=== PATIENT | male | born 1980 ===

== ENCOUNTER 2020-12-11 04:33 | Emergency (ER) | payer OTHER, SELFPAY ==
[2020-12-11 04:42] VITALS: BP 134/72; PULSE 80; RESP 16; TEMP 36.8; O2SAT 97; BMI 31.1
[2020-12-11 05:06] LABS: Glucose, Whole Blood 110 mg/dL (60-115)
--- NOTE | 2020-12-11 05:08 | PC.NURSE ---
Pt found ambulating from the waiting room into room 7. Pt CAOx4, speaking full sentences. Pt explains he has diet controlled diabetes, denies taking insulin/meds. Pt states he does not have a glucometer at home and no way to check his blood sugar. Pt recently concerned as he returned to the gym and has been eating a very high protein diet. Pt also reporting constipation, states his LBM was 3 days ago. Pt denies taking any OTC stool softeners. Pt requesting his A1C to be evaluated, states he has an appt with his PCP but not for 2 weeks. Pt requesting STI testing, states his girlfriend was cheating on him and there are rumors she has Chlamydia. Pt denies any urinary symptoms including discomfort and/or discharge. POC 110 mg/dl. Urine obtained and sent. Pt resting in bed, awaiting primary MD aster.
--- NOTE | 2020-12-11 05:20 | ED.GENADULT ---
HPI - General Adult General Chief complaint: General Medical Stated complaint: ?STD Time Seen by Provider: 12/11/20 05:09 Source: patient Mode of arrival: ambulatory Limitations: no limitations History of Present Illness HPI narrative: 40-year-old male who presents emergency department for evaluation STD exposure and he also wants his glucose checked since he has diet controlled diabetes. Patient states that 2-3 weeks ago he did have unprotected sex with a woman and he has heard that this woman is positive for chlamydia. He states he has not had any symptoms. He denies frequency, urgency or dysuria. He denies penile discharge. He has not noticed any lesions in his genital area. The patient states that he has diet-controlled diabetes. He is concerned that his glucose may be high therefore he wants his glucose checked. He denies symptoms such as change in his vision, increased thirst, urinary frequency. Related Data Previous Rx's Medication Instructions Recorded doxycycline hyclate 100 mg PO Q12H 7 Days #14 tab 12/11/20 Allergies Allergy/AdvReac Type Severity Reaction Status Date / Time acetaminophen [Tylenol] Allergy Unknown Verified 01/30/20 00:00 No Known Allergies Allergy Unverified 06/26/20 16:51 Review of Systems Review of Systems: Yes all other systems are reviewed and are negative Neurologic: Reports Abnormal speech present [facility] Past Medical History FOR[facility], [facility]1983 Narrative: Past medical history significant for diet-controlled diabetes. He does smoke cigarettes, smokes 1 pack a day. He drinks alcohol occasionally, he denies drug use. Medical History Diabetes 1.5, managed as type 2 Social History Social History Advance Directives: No Advance Directives Information Provided: No Physical Exam Vital Signs: Vital Signs: Last Vital Signs Temp 98.2 F 12/11/20 04:42 Pulse 80 12/11/20 04:42 Resp 16 12/11/20 04:42 BP 134/72 12/11/20 04:42 Pulse Ox 97 12/11/20 04:42 Body Mass Index 31.1 Const: General: cooperative and healthy appearing Orientation/consciousness: oriented to person and oriented to place Limitations: no limitations HENMT: Head: Yes normal to inspection, Yes normocephalic and Yes atraumatic Ears: external ears normal General nose exam: Normal external nose present Face and sinus: Yes normal facial exam Mouth: Normal oral and palatal mucosa present Throat: Yes posterior oropharynx normal Eyes: Periorbital: periorbital findings normal Eyelids: Yes eyelids normal Conjunctivae: conjunctivae normal Sclerae: sclerae normal Corneas: corneas normal Pupils: Equal, round and reactive pupils present Direct Ophthalmoscopy: normal light reflex Neck: Neck: Yes full ROM, Yes no lymphadenopathy, Yes no meningeal signs, Yes trachea midline and Yes supple Chest: Chest palpation & inspection: normal inspection of the chest and normal palpation of entire chest wall Resp: Effort & Inspection: normal respiratory effort and able to speak in complete sentences Auscultation: clear to auscultation bilaterally Cardio: Rate: regular rate Rhythm: regular rhythm Heart sounds: S1 normal heart sound present, S2 normal heart sound present and no murmurs GI: Inspection: Yes normal to inspection Palpation (GI): Soft to palpation, nontender, no guarding, not rigid and No hepatosplenomegaly present : General: Yes no CVA tenderness Penis: normal penis and circumcised Meatus: meatus normal and no meatla discharge Scrotum: scrotum normal Testes: Testes normal Back/Spine/Pelvis: Back: no CVA tenderness Cervical Spine: normal cervical lordosis Thoracic/Lumbar Spine: thoracic and lumbar spine normal to inspection Skin: Lesions: no lesions Rashes: no rashes Wounds: no wounds Neuro: General: oriented to person, oriented to place and no meningeal signs Cranial nerves: Yes Equal, round and reactive pupils present Cognition (Neuro): normal cognition Speech: Abnormal speech present Motor exam (neuro): 5/5 motor strength present throughout Extrem: General: Yes normal to inspection and Yes full ROM Psych: Appearance: well kempt Mental Status: mental status grossly normal Speech and movement: Normal speech and movement present Affect: normal affect Attitude: cooperative Thought process: Normal thought process present Thought content: Normal thought content present Course Course Course Narrative: 40-year-old male who has a history of diet-controlled diabetes mellitus who requested a glucose check. Patient's point of care glucose was 110 which I told him was reassuring, told him he should talk to his doctor about getting a glucose monitor so he can check his glucose at home and follow his diabetes. The patient was also concerned that he had exposure to chlamydia. I did send a urine for gonorrhea and chlamydia testing. The patient will be treated empirically with ceftriaxone 500 mg IM (with lidocaine) for gonorrhea and doxycycline 100 mg twice a day for 7 days for chlamydia. Medical Decision Making Lab Data Labs: Lab Results 12/11/20 Range/Units 04:57 POC Glucose 110 (60-115) mg/dL Discharge Plan Discharge Clinical Impression: Acute hyperglycemia, Exposure to sexually transmitted disease (STD) Patient Disposition: Home, Self-Care Instructions: Sexually Transmitted Diseases (ED) Additional Instructions: Your point of care glucose was 110. Normal range is between 60 and 100. We like to keep your glucose less than 150. You were treated with ceftriaxone 500 mg IM, this will treat gonorrhea. I sent a prescription for doxycycline 100 mg twice a day for 7 days, this will treat chlamydia. If you wanted be tested for syphilis or HIV disease, used to follow up with [facility]. Follow-up with your doctor in 2 days. Please return to the emergency department if your symptoms get worse or if you develop any symptoms that are concerning to you. Prescriptions: New doxycycline hyclate 100 mg tablet 100 mg PO Q12H 7 Days Qty: 14 RF: 0
[2020-12-11] MEDS: cefTRIAXone sodium 500 MG, Lidocaine HCl 1 % MPF 1 ML IM (05:34)
[2020-12-12 12:42] LABS: C. trachomatis RNA TMA NOT DETECTED (NOT DETECTED); N. gonorrhoeae RNA TMA NOT DETECTED (NOT DETECTED)
== END 2020-12-11 05:35 | disposition home or self-care (01) ==
PROVIDERS: Emergency Provider Emergency Medicine Emergency Medical Services; PCP Internal Medicine
DX: E13.65 Other specified diabetes mellitus with hyperglycemia (principal); Z20.2 Contact with and (suspected) exposure to infections with a predominantly sexual mode of transmission; Z79.899 Other long term (current) drug therapy
CPT/HCPCS: 36415; 82947; 87491; 87591; 96372; 96374; 99283; J0696

== ENCOUNTER 2021-11-17 10:26 | Outpatient (REF) | payer OTHER, SELFPAY ==
[2021-11-17 12:26] LABS: Alanine Aminotransferase 21 U/L (0-40); Albumin Level 4.2 g/dL (3.5-5.0); Alkaline Phosphatase 91 U/L (39-117); Anion Gap 13 (12-20); Aspartate Amino Transferase 13 U/L (5-37); Bilirubin Total 0.4 mg/dL (0.0-1.0); Blood Urea Nitrogen 11 mg/dL (9-16); Calcium 9.5 mg/dL (8.4-10.2); Carbon Dioxide 27 mmol/L (22-29); Chloride 104 mmol/L (96-108); Cholesterol 240 mg/dL; Estimated Glomerular Filt Rate > 60; Glucose Fasting 116 mg/dL (60-99); HDL Cholesterol 35 mg/dL; LDL Cholesterol Calculated 169 mg/dl; Potassium 4.5 mmol/L (3.3-5.1); Sodium 139 mmol/L (135-145); Total Protein 7.3 g/dL (6.5-8.0); Triglycerides 181 mg/dL
[2021-11-17 14:27] LABS: Creatinine Urine 255.14 mg/dL; Microalbum/Creatinine Ratio Ur 7.8 ug/mg cr
== END 2021-11-17 10:27 | disposition home or self-care (01) ==
LOC: HO.HMGCLDS 10:26
PROVIDERS: PCP Internal Medicine; Visit Provider Internal Medicine
DX: E11.9 Type 2 diabetes mellitus without complications (principal)
CPT/HCPCS: 36415; 80053; 80061; 82043

== ENCOUNTER 2022-12-01 13:49 | Outpatient (REF) | payer OTHER, SELFPAY ==
[2022-12-01 17:08] LABS: MANUAL DIFF FLAG NO
[2022-12-01 17:29] LABS: Basophils Percent Auto 0.4 % (0-2); Eosinophils Absolute Auto 0.1 X10*3/uL (0.0-0.4); Hematocrit 42.1 % (42.0-52.0); Hemoglobin 14.2 g/dl (14.0-18.0); Imm Gran Abs Auto 0.08 X10*3/uL (0.00-0.03); Imm Gran Pct Auto 0.7 % (0.0-0.4); Lymphocytes Absolute Auto 4.5 X10*3/uL (1.2-4.9); Lymphocytes Percent Auto 41.3 % (20-40); Mean Corpuscular HGB Conc 33.7 g/dl (31.0-36.0); Mean Corpuscular Hemoglobin 30.5 pg (27.0-33.0); Mean Corpuscular Volume 90.5 fL (80.0-98.0); Mean Platelet Volume 12.3 fL (9.4-12.4); Monocytes Absolute Auto 0.8 X10*3/uL (0.1-1.2); Neutrophils Absolute Auto 5.4 x10*3/uL (2.0-8.3); Neutrophils Percent Auto 49.6 % (45-73); Platelet Count 260 X10*3/uL (160-400); Red Blood Count 4.65 X10*6/uL (4.60-5.80); Red Cell Distribution Width 14.6 % (11.0-16.0); White Blood Count 10.9 X10*3/uL (4.8-10.8)
[2022-12-01 17:32] LABS: Estimated Average Glucose 134 mg/dL; Hemoglobin A1c % 6.3 %
[2022-12-01 18:22] LABS: Alanine Aminotransferase 35 U/L (0-40); Albumin Level 4.3 g/dL (3.5-5.0); Alkaline Phosphatase 96 U/L (39-117); Anion Gap 12 (12-20); Aspartate Amino Transferase 23 U/L (5-37); Bilirubin Total 0.4 mg/dL (0.0-1.0); Blood Urea Nitrogen 9 mg/dL (9-16); Calcium 9.5 mg/dL (8.4-10.2); Carbon Dioxide 25 mmol/L (22-29); Chloride 106 mmol/L (96-108); Cholesterol 237 mg/dL; Estimated Glomerular Filt Rate > 60; Glucose Fasting 98 mg/dL (60-99); HDL Cholesterol 34 mg/dL; LDL Cholesterol Calculated 165 mg/dl; Potassium 4.4 mmol/L (3.3-5.1); Sodium 139 mmol/L (135-145); Total Protein 7.1 g/dL (6.5-8.0); Triglycerides 190 mg/dL
== END 2022-12-01 13:50 | disposition home or self-care (01) ==
LOC: HO.HMGCLDS 13:49
PROVIDERS: PCP Internal Medicine; Visit Provider Internal Medicine
DX: Z00.01 Encounter for general adult medical examination with abnormal findings (principal); E11.9 Type 2 diabetes mellitus without complications; E78.9 Disorder of lipoprotein metabolism, unspecified
CPT/HCPCS: 36415; 80053; 80061; 83036; 85025

== ENCOUNTER → 2023-08-23 11:31 | Outpatient (BNVA) | payer OTHER, SELFPAY | PROVIDERS: PCP Internal Medicine; Visit Provider Physician Assistant Medical | DX: S93.402A Sprain of unspecified ligament of left ankle, initial encounter (principal); W22.09XA Striking against other stationary object, initial encounter | CPT/HCPCS: 99203 ==

== ENCOUNTER → 2023-08-29 15:12 | Outpatient (BNVA) | payer OTHER, SELFPAY | PROVIDERS: PCP Internal Medicine; Visit Provider Physician Assistant Medical | DX: S93.402A Sprain of unspecified ligament of left ankle, initial encounter (principal); W22.09XA Striking against other stationary object, initial encounter | CPT/HCPCS: 99213 ==

== ENCOUNTER 2023-09-12 11:33 | Outpatient (AMB) | payer OTHER, SELFPAY ==
--- NOTE | 2023-09-12 11:48 | MHC.OFFVIS ---
Intake Vital Signs 09/12/23 11:50 Height 6 ft Weight 253 lb BMI 34.3 Intake Visit Reasons: [employer] Left ankle sprain Intake Note: Jackson 43 yr old male presents today for a new patient visit for his left ankle W/C injury from about 2 weeks. Patient doesn't recall DOI. States he was gettikng off his truck, his boot was caught in between a tread a step causing him to twist his ankle and fell. Seen with Work connection where he was given a air cast and 2 days of rest. Currently states he has discomfort and feels like its getting better. Denies numbness or tingling in toes. Hx of DM type 2. Patient works for [employer]. Allergies acetaminophen [From Tylenol-Codeine] Adverse Reaction (Mild, Verified 09/12/23 11:50) hives codeine [From Tylenol-Codeine] Adverse Reaction (Mild, Verified 09/12/23 11:50) hives HPI [employer] Left ankle sprain HPI Details 43-year-old male who presents in the office today, as a new patient, for an evaluation of left ankle pain. The patient reports while at work he was getting off his truck when his boot caught in between the treat and a step causing him to twist his left ankle and fall. He confirms being seen at work connection where he was given an aircast and told to rest for 2 days. While in the office today he reports some discomfort and feels like it is getting better. He denies numbness or tingling in the toes. Patient works for [employer]. This a work related injury, which occurred about 2 weeks ago. The patient does not recall the exact date of injury. The patient confirms a significant medical history of diabetes mellitus. 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 Mild ecchymosis along the lateral malleolus. No erythema or edema. Patient is able to demonstrate dorsiflexion, plantar flexion, pronation and supination. Negative anterior drawer. Sensation intact. Pedal Pulse intact. Assessment & Plan Assessment & Plan (1) Left ankle sprain: Code(s): S93.402A - Sprain of unspecified ligament of left ankle, initial encounter Qualifiers: Encounter type: initial encounter Involved ligament of ankle: unspecified ligament Qualified Code(s): S93.402A - Sprain of unspecified ligament of left ankle, initial encounter Plan Mr. Puckett is a 43-year-old male who presents in the office today, as a new patient, for an evaluation of left ankle pain. The patient reports while at work he was getting off his truck when his boot caught in between the treat and a step causing him to twist his left ankle and fall. He confirms being seen at work connection where he was given an aircast and told to rest for 2 days. While in the office today he reports some discomfort and feels like it is getting better. He denies numbness or tingling in the toes. Patient works for [employer]. This a work related injury, which occurred about 2 weeks ago. The patient does not recall the exact date of injury. The patient confirms a significant medical history of diabetes mellitus. The patient was given a lace up ankle brace, off the shelf, while in the office today. He will attend 1-2 physical therapy sessions to learn an at home exercise program. 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 Follow up will be PRN, or sooner if needed. Orders: Orders PT Evaluation and Treatment Today S93.402A - Sprain of unspecified ligament of left ankle, initial encounter Patient Instructions: Scribed for iHna Segura PA-C by humphrey Guillermo scribe, on 09/12/2023 at 11:42 am, EST. Coding Level of Care Code New Pt Level 4 (15093) Diagnoses Sprain of left ankle, unspecified ligament, initial encounter S93.402A Encounter type: initial encounter Involved ligament of ankle: unspecified ligament
[2023-09-12 11:50] VITALS: BMI 34.3
== END 2023-09-12 12:31 | disposition home or self-care (01) ==
PROVIDERS: PCP Internal Medicine; Visit Provider Physician Assistant
DX: S93.402A Sprain of unspecified ligament of left ankle, initial encounter (principal)
CPT/HCPCS: 99203

== ENCOUNTER → 2023-09-12 11:33 | Outpatient (BNVA) | payer OTHER, SELFPAY | PROVIDERS: PCP Internal Medicine; Visit Provider Physician Assistant | DX: S93.402A Sprain of unspecified ligament of left ankle, initial encounter (principal) | CPT/HCPCS: 99202 ==

== ENCOUNTER 2023-10-06 15:00 | Outpatient (RCR) | payer OTHER, SELFPAY ==
--- NOTE | 2023-09-29 16:46 | MHC.PT.EP ---
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 Pt is deemed an appropriate candidate to receive skilled PT services to address their physical impairments in order to improve their functional ability. Frequency and Duration: The patient will be seen 1 x 2wks. Short Term Goals: Initiate home program. Usp Goals: I with home program with evidence of compliance. Pt will report < 2/10 stiffness discomfort; initial: 3/10. Treatment Plan: Modalities to reduce pain, spasms and effusion. Manual therapy to restore motion and function. Therapeutic exercise to improve strength and flexibility. Neuromuscular re-education for posture and balance. Therapeutic activities to return to functional activities of daily living. Electronically signed by: Armando Garibay PT. Please sign and return to therapist. Thank you for your referral.
--- NOTE | 2023-10-06 17:02 | MHC.PT.DC ---
[facility] [place] Office [place] Office [place] Office [address] [phone] F: [phone] F: [phone] F: [phone] F: [phone] Physical Therapy Discharge Report Diagnosis: Sprain of unspecified ligament of left ankle, initial encounter Date of Surgery: Date of Evaluation: 09/29/23 Date of Discharge: 10/06/23 Treatments to Date: 1 Cancellations to Date: 1 No Shows to Date: Discharge Status: Achieved Goals Independent with HEP Discharge Summary: Pt reported his initial HEP exercises feel good and cancelled his follow up visit. Electronically signed by: Armando Garibay PT. Please sign and return to therapist. Thank you for your referral.
== END 2023-10-06 17:01 | disposition home or self-care (01) ==
LOC: HO.PT 15:00
PROVIDERS: PCP Internal Medicine; Visit Provider Physician Assistant
DX: S93.402A Sprain of unspecified ligament of left ankle, initial encounter (principal)
CPT/HCPCS: 97110; 97112; 97161

== ENCOUNTER 2024-06-13 09:08 | Outpatient (AMB) | payer OTHER, SELFPAY ==
--- NOTE | 2024-06-13 09:09 | A.OFFPC_ITS ---
Vital Signs 06/13/24 09:10 Height 6 ft Weight 266 lb 2 oz BMI 36.1 BP 124/74 Blood Pressure Location Rt brachial Position Sitting Pulse 78 Pulse Source Pulse Oximeter Pulse Oximetry (%) 97 Oxygen Delivery Method Room Air Intake Visit Reasons: urgent care f/u Allergies acetaminophen [From Tylenol-Codeine] Adverse Reaction (Mild, Verified 06/13/24 09:13) hives codeine [From Tylenol-Codeine] Adverse Reaction (Mild, Verified 06/13/24 09:13) hives Medication List - Last Reconciled 06/13/24 by Rose Kinney MD No Known Home Meds Tobacco use date assessed: 06/13/24 Dental Screening Dental Screen Date: 06/13/24 Did you have a dental visit in the last 12 months?: Yes Did you have a dental problem in the last 6 months where you did not have access to dental care?: No Was dental information given to patient?: Patient has dentist HPI urgent care f/u HPI Details Patient is a 43-year-old gentlemen was diagnosed with diabetes, and was controlled on diet he stopped smoking started eating gained some weight his sugar got out of control 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 We will set up a telemedicine visit in 2 weeks to follow-up on that. 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 1. Little interest or pleasure in doing things: not at all 2. Feeling down, depressed, or hopeless: not at all 3. Trouble falling or staying asleep, or sleeping too much: not at all 4. Feeling tired or having little energy: not at all 5. Poor appetite or overeating: not at all 6. Feeling bad about yourself - or that you are a failure or have let yourself or your family down: not at all 7. Trouble concentrating on things, such as reading the newspaper or watching television: not at all 8. Moving or speaking so slowly that other people could have noticed. Or the opposite - being so fidgety or restless that you have been moving around a lot more than usual: not at all 9. Thoughts that you would be better off or of hurting yourself in some way: not at all Total score: 0 Depression Screening Interpretation: Negative Depression Screening Done: Yes 15853 - PHQ-9 Billing: Yes Source: Developed by Drs. Johnny Raymundo, Sharifa Ballesteros, Vijay Abarca and colleagues, with an educational vipin from [employer]. Thrive Questionnaire Date Thrive assessed: 06/13/24 I am a: Patient What is your living situation today?: I have a steady place to live Within the past 12 months, did the food you bought not last and you didn't have the money to get more?: Never true Within the past 12 months, did you worry whether your food would run out before you got money to buy more?: Never true Do you have trouble paying for medicines?: No Do you have trouble getting transportation to medical appointments?: No Do you have trouble paying your heating and electricity bill?: No Do you have trouble taking care of your child, family member or friend?: No Do you have trouble with day-to-day activities such as bathing, preparing meals, shopping, managing finances, etc.?: No Are you currently unemployed and looking for a job?: Yes Are you interested in more education?: No Please select the resources that you would like help with: None Currently or been in a relationship where the following occur: No concerns reported THRIVE Score: 0 AUDIT C Alcohol Use Questionnaire (AUDIT-C) 1. How often do you have a drink containing alcohol?: Monthly or less 2. How many drinks containing alcohol do you have on a typical day when you are drinking?: 1 or 2 3. How often do you have six or more drinks on one occasion?: Never Total Score: 1 Score Reviewed/Action Taken: Yes GERALD-7 AMB Questionnaire GERALD-7 Date GERALD - 7 assessed: 06/13/24 Feeling nervous, anxious, or on edge: 0 = Not at all Not being able to stop or control worryin = Not at all Worrying too much about different things: 0 = Not at all Trouble relaxin = Not at all Being so restless that it is hard to sit still: 0 = Not at all Becoming easily annoyed or irritable: 0 = Not at all Feeling afraid as if something awful might happen: 0 = Not at all Total GERALD-7 score (0-4 normal; 5-9 mild; 10-14 moderate; 15-21 severe): 0 Source: Developed by Drs. Johnny Raymundo, Sharifa Ballesteros, Vijay Abarca and colleagues, with an educational vipin from [employer]. GERALD-7 Assessment Billing GERALD-7 Assessment Tool: GERALD-7 Assessment 42057 Review of Systems Const Denies chills and Denies fever(s) ENT Denies epistaxis and Denies nasal discharge Card Denies chest pain Resp Denies chest congestion, Denies cough and Denies hemoptysis GI Denies diarrhea and Denies nausea Skin/Breast Denies rash Neuro Reports no additional complaints Psych Reports no additional complaints Endo Reports no additional complaints Physical exam (Primary Care) Vital Signs: Last Vital Signs Pulse 78 06/13/24 09:10 BP 124/74 06/13/24 09:10 Pulse Ox 97 06/13/24 09:10 Oxygen Delivery Method Room Air 06/13/24 09:10 BMI result Body Mass Index 36.1 Tobacco/Smoking Status: Tobacco use Status Tobacco use date assessed 06/13/24 06/13/24 09:16 Patient Tobacco Use Status Current everyday Tobacco (1 06/13/24 09:11 PACK PER WEEK ) Tobacco use type Cigarette 06/13/24 09:11 e-Cigarette/Vaping Use Never Used 06/13/24 09:11 PHQ-9: PHQ-9 Score PHQ-9: Total score 0 06/13/24 09:32 Depression Screening Interpretation: Negative Thrive Assessment: Date of Thrive Assessment Date Thrive assessed 06/13/24 06/13/24 09:16 Currently or been in a relationship where the following occur: No concerns reported Const General: cooperative, comfortable and no acute distress Orientation/consciousness: patient oriented x3 HENMT Head: Yes normocephalic Eyes General: appearance normal, both eyes and all related structures Neck Neck: Yes supple Resp Effort & Inspection: normal respiratory effort, no cough and no stridor Cardio Rhythm: regular rhythm Heart sounds: S1 normal heart sound present and S2 normal heart sound present Skin General skin exam: turgor normal Neuro General: patient oriented x3, tone normal and moves all extremities Extrem Right lower extremity: no edema Left lower extremity: no edema Assessment and Plan Assessment & Plan (1) Diabetes 1.5, managed as type 2: Code(s): E13.9 - Other specified diabetes mellitus without complications Plan Patient is a 43-year-old gentlemen was diagnosed with diabetes, and was controlled on diet he stopped smoking started eating gained some weight his sugar got out of control 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 We will set up a telemedicine visit in 2 weeks to follow-up on that. Lab order placed to be done fasting today Orders: Orders Microalbumin, Random (w Creat) Today E13.9 - Other specified diabetes mellitus without complications Hemoglobin A1c Today E13.9 - Other specified diabetes mellitus without complications Complete Blood Count Auto Diff Today E13.9 - Other specified diabetes mellitus without complications Comprehensive [place]. Panel Fast Today E13.9 - Other specified diabetes mellitus without complications Lipid Panel Today E13.9 - Other specified diabetes mellitus without complications Medications: New glipizide-metformin 2.5-500 mg 1 tab PO DAILY 30 tabs 0RF Coding Level of Care Code Est Pt Level 3 (35490) Diagnoses Diabetes 1.5, managed as type 2 E13.9 Additional Codes GERALD-7 Assessment Billing - GERALD-7 Assessment Tool: GERALD-7 Assessment 22328 ([id number])
[2024-06-13 09:10] VITALS: BP 124/74; PULSE 78; O2SAT 97; BMI 36.1
== END 2024-06-13 09:33 | disposition home or self-care (01) ==
PROVIDERS: PCP Internal Medicine; Visit Provider Internal Medicine
DX: E13.9 Other specified diabetes mellitus without complications (principal)
CPT/HCPCS: 99213

== ENCOUNTER 2024-06-13 09:33 | Outpatient (REF) | payer OTHER, SELFPAY ==
[2024-06-13 13:24] LABS: MANUAL DIFF FLAG NO
[2024-06-13 13:32] LABS: Basophils Absolute Auto 0.1 X10*3/uL (0.0-0.2); Basophils Percent Auto 0.7 % (0-2); Eosinophils Absolute Auto 0.1 X10*3/uL (0.0-0.4); Eosinophils Percent Auto 1.4 % (0-4); Hematocrit 43.8 % (42.0-52.0); Hemoglobin 14.8 g/dl (14.0-18.0); Imm Gran Abs Auto 0.09 X10*3/uL (0.00-0.03); Lymphocytes Absolute Auto 3.2 X10*3/uL (1.2-4.9); Lymphocytes Percent Auto 33.6 % (20-40); Mean Corpuscular HGB Conc 33.8 g/dl (31.0-36.0); Mean Corpuscular Hemoglobin 30.7 pg (27.0-33.0); Mean Corpuscular Volume 90.9 fL (80.0-98.0); Mean Platelet Volume 12.6 fL (9.4-12.4); Monocytes Absolute Auto 0.6 X10*3/uL (0.1-1.2); Neutrophils Absolute Auto 5.4 x10*3/uL (2.0-8.3); Neutrophils Percent Auto 57.3 % (45-73); Platelet Count 261 X10*3/uL (160-400); Red Blood Count 4.82 X10*6/uL (4.60-5.80); Red Cell Distribution Width 14.3 % (11.0-16.0); White Blood Count 9.4 X10*3/uL (4.8-10.8)
[2024-06-13 13:41] LABS: Estimated Average Glucose 214 mg/dL; Hemoglobin A1c % 9.1 % (<6.0)
[2024-06-13 13:50] LABS: Alanine Aminotransferase 41 U/L (0-40); Albumin Level 4.3 g/dL (3.5-5.0); Alkaline Phosphatase 102 U/L (39-117); Anion Gap 13 (12-20); Aspartate Amino Transferase 25 U/L (5-37); Bilirubin Total 0.3 mg/dL (0.0-1.0); Blood Urea Nitrogen 11 mg/dL (9-16); Carbon Dioxide 24 mmol/L (22-29); Chloride 105 mmol/L (96-108); Cholesterol 255 mg/dL (<200); Estimated Glomerular Filt Rate > 60; Glucose Fasting 194 mg/dL (60-99); HDL Cholesterol 37 mg/dL (>40); LDL Cholesterol Calculated 168 mg/dL (<100); Potassium 4.3 mmol/L (3.3-5.1); Sodium 138 mmol/L (135-145); Total Protein 7.6 g/dL (6.5-8.0); Triglycerides 252 mg/dL (<150)
[2024-06-13 13:57] LABS: Creatinine Urine 139.16 mg/dL
== END 2024-06-13 09:34 | disposition home or self-care (01) ==
LOC: HO.HMGCLDS 09:33
PROVIDERS: PCP Internal Medicine; Visit Provider Internal Medicine
DX: E13.9 Other specified diabetes mellitus without complications (principal)
CPT/HCPCS: 36415; 80053; 80061; 82043; 82570; 83036; 85025

== ENCOUNTER 2024-06-27 13:12 | Outpatient (AMB) | payer OTHER, SELFPAY ==
[2024-06-27 13:13] VITALS: BP 122/76; PULSE 78; O2SAT 97; BMI 34.7
--- NOTE | 2024-06-27 13:13 | MHC.PC.OV ---
Vital Signs 06/27/24 13:13 Height 6 ft Weight 256 lb 4 oz BMI 34.7 BP 122/76 Blood Pressure Location Rt brachial Position Sitting Pulse 78 Pulse Source Pulse Oximeter Pulse Oximetry (%) 97 Oxygen Delivery Method Room Air Intake Visit Reasons: 2 week follow up Allergies acetaminophen [From Tylenol-Codeine] Adverse Reaction (Mild, Verified 06/27/24 13:13) hives codeine [From Tylenol-Codeine] Adverse Reaction (Mild, Verified 06/27/24 13:13) hives Medication List - Last Reconciled 06/27/24 by Roes Kinney MD blood sugar diagnostic (FreeStyle Lite Strips) Use 1 test strip once a day blood-glucose meter (FreeStyle Lite Meter kit) As directed FreeStyle Test (blood sugar diagnostic) Test blood sugar twice a day NS glipizide-metformin 2.5-500 mg 1 tab PO DAILY lancets (FreeStyle Lancets) Test blood sugar twice a day Tobacco use date assessed: 06/27/24 Dental Screening Dental Screen Date: 06/27/24 Did you have a dental visit in the last 12 months?: Yes Did you have a dental problem in the last 6 months where you did not have access to dental care?: No Was dental information given to patient?: Patient has dentist HPI 2 week follow up HPI Details Patient is a 43-year-old gentleman came in today to follow-up on diabetes He was started on glipizide metformin 2.5-500 mg 1 tablet daily He is monitoring his fasting sugar which has been running around 120s to 140s now He has modified his diet His LDL is 168 We will repeat labs again in 3 months and then decide whether to put him on statin 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 Cognitive needs: No Hearing needs: No Vision needs: No Questionnaire Thrive Questionnaire Date Thrive assessed: 06/27/24 I am a: Patient What is your living situation today?: I have a steady place to live Within the past 12 months, did the food you bought not last and you didn't have the money to get more?: Never true Within the past 12 months, did you worry whether your food would run out before you got money to buy more?: Never true Do you have trouble paying for medicines?: No Do you have trouble getting transportation to medical appointments?: No Do you have trouble paying your heating and electricity bill?: No Do you have trouble taking care of your child, family member or friend?: No Do you have trouble with day-to-day activities such as bathing, preparing meals, shopping, managing finances, etc.?: No Are you currently unemployed and looking for a job?: Yes Are you interested in more education?: No Please select the resources that you would like help with: None Currently or been in a relationship where the following occur: No concerns reported THRIVE Score: 0 AUDIT C Alcohol Use Questionnaire (AUDIT-C) 1. How often do you have a drink containing alcohol?: Monthly or less 2. How many drinks containing alcohol do you have on a typical day when you are drinking?: 1 or 2 3. How often do you have six or more drinks on one occasion?: Never Total Score: 1 Score Reviewed/Action Taken: Yes GERALD-7 AMB Questionnaire GERALD-7 Date GERALD - 7 assessed: 06/13/24 Source: Developed by Drs. Johnny Raymundo, Sharifa Ballesteros, Vijay Abarca and colleagues, with an educational vipin from [employer]. Review of Systems Const All systems reviewed & are unremarkable except as noted in HPI and below Physical exam (Primary Care) Vital Signs: Last Vital Signs Pulse 78 06/27/24 13:13 BP 122/76 06/27/24 13:13 Pulse Ox 97 06/27/24 13:13 Oxygen Delivery Method Room Air 06/27/24 13:13 BMI result Body Mass Index 34.7 Tobacco/Smoking Status: Tobacco use Status Tobacco use date assessed 06/27/24 06/27/24 13:16 Patient Tobacco Use Status Current everyday Tobacco (1 06/27/24 13:16 PACK PER WEEK ) Tobacco use type Cigarette 06/27/24 13:16 e-Cigarette/Vaping Use Never Used 06/27/24 13:16 Thrive Assessment: Date of Thrive Assessment Date Thrive assessed 06/27/24 06/27/24 13:16 Currently or been in a relationship where the following occur: No concerns reported Const General: no acute distress Orientation/consciousness: patient oriented x3 Eyes General: appearance normal, both eyes and all related structures Resp Effort & Inspection: normal respiratory effort and able to speak in complete sentences Auscultation: clear to auscultation bilaterally Neuro General: patient oriented x3 Psych Mental Status: mental status grossly normal Assessment and Plan Assessment & Plan (1) Diabetes 1.5, managed as type 2: Code(s): E13.9 - Other specified diabetes mellitus without complications (2) Lipid disorder: Code(s): E78.9 - Disorder of lipoprotein metabolism, unspecified Plan Patient is a 43-year-old gentleman came in today to follow-up on diabetes He was started on glipizide metformin 2.5-500 mg 1 tablet daily He is monitoring his fasting sugar which has been running around 120s to 140s now He has modified his diet His LDL is 168 We will repeat labs again in 3 months and then decide whether to put him on statin 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 Blood pressure is well-controlled without medication Coding Level of Care Code Est Pt Level 3 (88989) Diagnoses Diabetes 1.5, managed as type 2 E13.9 Lipid disorder E78.9
== END 2024-06-27 13:28 | disposition home or self-care (01) ==
PROVIDERS: PCP Internal Medicine; Visit Provider Internal Medicine
DX: E13.9 Other specified diabetes mellitus without complications (principal); E78.9 Disorder of lipoprotein metabolism, unspecified

== ENCOUNTER → 2024-06-27 13:12 | Outpatient (BNVA) | payer OTHER, SELFPAY | PROVIDERS: PCP Internal Medicine; Visit Provider Internal Medicine | DX: E13.9 Other specified diabetes mellitus without complications (principal); E78.9 Disorder of lipoprotein metabolism, unspecified | CPT/HCPCS: 99212 ==

== ENCOUNTER 2024-09-10 13:50 | Outpatient (REF) | payer SELFPAY ==
[2024-09-10 17:14] LABS: Estimated Average Glucose 117 mg/dL; Hemoglobin A1C 131.9548 umol/L; Hemoglobin A1c % 5.7 % (<6.0)
[2024-09-10 17:28] LABS: Alanine Aminotransferase 13 U/L (0-40); Albumin Level 4.5 g/dL (3.5-5.0); Alkaline Phosphatase 96 U/L (39-117); Anion Gap 13 (12-20); Aspartate Amino Transferase 21 U/L (5-37); Bilirubin Total 0.3 mg/dL (0.0-1.0); Blood Urea Nitrogen 9 mg/dL (9-16); Calcium 9.3 mg/dL (8.4-10.2); Carbon Dioxide 23 mmol/L (22-29); Chloride 107 mmol/L (96-108); Cholesterol 201 mg/dL (<200); Estimated Glomerular Filt Rate > 60; Glucose Fasting 88 mg/dL (60-99); HDL Cholesterol 31 mg/dL (>40); LDL Cholesterol Calculated 147 mg/dL (<100); Potassium 3.7 mmol/L (3.3-5.1); Sodium 139 mmol/L (135-145); Total Protein 7.5 g/dL (6.5-8.0); Triglycerides 115 mg/dL (<150)
== END 2024-09-10 13:51 | disposition home or self-care (01) ==
LOC: HO.HMGCLDS 13:50
PROVIDERS: PCP Internal Medicine; Visit Provider Internal Medicine
DX: E11.9 Type 2 diabetes mellitus without complications (principal); E78.9 Disorder of lipoprotein metabolism, unspecified
CPT/HCPCS: 36415; 80053; 80061; 83036

== ENCOUNTER 2024-09-11 10:58 | Outpatient (AMB) | payer OTHER, SELFPAY ==
[2024-09-11 11:00] VITALS: BP 124/80; PULSE 84; O2SAT 98; BMI 30.5
--- NOTE | 2024-09-11 11:00 | A.OFFPC_ITS ---
Vital Signs 09/11/24 11:00 Height 6 ft Weight 225 lb BMI 30.5 BP 124/80 Blood Pressure Location Rt brachial Position Sitting Pulse 84 Pulse Source Pulse Oximeter Pulse Oximetry (%) 98 Oxygen Delivery Method Room Air Intake Visit Reasons: 3 moths f/up Allergies acetaminophen [From Tylenol-Codeine] Adverse Reaction (Mild, Verified 09/11/24 11:00) hives codeine [From Tylenol-Codeine] Adverse Reaction (Mild, Verified 09/11/24 11:00) hives Medication List - Last Reconciled 09/11/24 by Rose Kinney MD blood sugar diagnostic (FreeStyle Lite Strips) Use 1 test strip once a day blood-glucose meter (FreeStyle Lite Meter kit) As directed glipizide-metformin 2.5-500 mg 1 tab PO DAILY lancets (FreeStyle Lancets) Test blood sugar twice a day Tobacco use date assessed: 09/11/24 Dental Screening Dental Screen Date: 09/11/24 Did you have a dental visit in the last 12 months?: Yes Did you have a dental problem in the last 6 months where you did not have access to dental care?: No Was dental information given to patient?: Patient has dentist HPI 3 moths f/up HPI Details Chief Complaint The patient presents for regular follow-up of diabetes and management of estella vated cholesterol levels. Assessment and Plan 44-year-old male with a history of Type 2 Diabetes Mellitus presenting for a follow-up visit and monitoring of blood glucose levels and hyperlipidemia management. The patient reports successful management of diabetes with medication adherence resulting in significant improvement of hemoglobin A1c from 9.1% to 5.7%. Lipid panel reveals persistently elevated LDL levels at 147 mg/dL, requiring intervention. Other laboratory assessments indicate normal kidney and liver function, with high cholesterol being a concern. He reports no symptoms of diabetes complications such as polyuria, chest pains, or shortness of breath. 1. Type 2 Diabetes Mellitus The patient's diabetes is well-controlled with a current regimen of one tablet daily, resulting in a decrease in hemoglobin A1c from 9.1% to 5.7%, which is nearly within normal range. The patient is advised to continue current medication and monitor blood sugar levels at home, observing readings below 100 mg/dL. 2. Hyperlipidemia The patient has elevated LDL cholesterol at 147 mg/dL, which remains higher than the target level of less than 100 mg/dL. Discussed importance of dietary management in reducing cholesterol levels. The plan includes initiating a daily medication to lower LDL cholesterol levels, as current dietary measures alone are insufficient. The patient will undergo a fasting lipid profile in three months to reassess cholesterol management effectiveness. Problem List - Type 2 Diabetes Mellitus - Hyperlipidemi - obesity Patient Instructions - Continue taking current diabetes medic ation as prescribed. - Monitor blood glucose levels regularly at home. - Begin newly prescribed cholesterol-low ering medication daily as directed. - Maintain dietary restrictions aimed at cholesterol reduction. - Return for a fasting blood test in thr ee months to evaluate cholesterol levels. - Watch for and report any new symptoms such as chest pains or shortness of breath immediately. 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 Cognitive needs: No Hearing needs: No Vision needs: No Questionnaire Thrive Questionnaire Date Thrive assessed: 09/11/24 I am a: Patient What is your living situation today?: I have a steady place to live Within the past 12 months, did the food you bought not last and you didn't have the money to get more?: Never true Within the past 12 months, did you worry whether your food would run out before you got money to buy more?: Never true Do you have trouble paying for medicines?: No Do you have trouble getting transportation to medical appointments?: No Do you have trouble paying your heating and electricity bill?: No Do you have trouble taking care of your child, family member or friend?: No Do you have trouble with day-to-day activities such as bathing, preparing meals, shopping, managing finances, etc.?: No Are you currently unemployed and looking for a job?: Yes Are you interested in more education?: No Please select the resources that you would like help with: None Currently or been in a relationship where the following occur: No concerns reported THRIVE Score: 0 AUDIT C Alcohol Use Questionnaire (AUDIT-C) 1. How often do you have a drink containing alcohol?: Monthly or less 2. How many drinks containing alcohol do you have on a typical day when you are drinking?: 1 or 2 3. How often do you have six or more drinks on one occasion?: Never Total Score: 1 Score Reviewed/Action Taken: Yes GERALD-7 AMB Questionnaire GERALD-7 Date GERALD - 7 assessed: 06/13/24 Source: Developed by Drs. Johnny Raymundo, Sharifa Ballesteros, Vijay Abarca and colleagues, with an educational vipin from [employer]. Review of Systems Const Denies chills and Denies fever(s) ENT Denies epistaxis and Denies nasal discharge Card Denies chest pain Resp Denies chest congestion, Denies cough and Denies hemoptysis GI Denies diarrhea and Denies nausea Skin/Breast Denies rash Neuro Reports no additional complaints Psych Reports no additional complaints Endo Reports no additional complaints Physical exam (Primary Care) Vital Signs: Last Vital Signs Pulse 84 09/11/24 11:00 BP 124/80 09/11/24 11:00 Pulse Ox 98 09/11/24 11:00 Oxygen Delivery Method Room Air 09/11/24 11:00 BMI result Body Mass Index 30.5 Tobacco/Smoking Status: Tobacco use Status Tobacco use date assessed 09/11/24 09/11/24 11:05 Patient Tobacco Use Status Current everyday Tobacco (1 09/11/24 11:05 PACK PER WEEK ) Tobacco use type Cigarette 09/11/24 11:05 e-Cigarette/Vaping Use Never Used 09/11/24 11:05 Thrive Assessment: Date of Thrive Assessment Date Thrive assessed 09/11/24 09/11/24 11:05 Currently or been in a relationship where the following occur: No concerns reported Const General: cooperative, comfortable and no acute distress Orientation/consciousness: patient oriented x3 HENMT Head: Yes normocephalic Eyes General: appearance normal, both eyes and all related structures Neck Neck: Yes supple Resp Effort & Inspection: normal respiratory effort, no cough and no stridor Cardio Rhythm: regular rhythm Heart sounds: S1 normal heart sound present and S2 normal heart sound present Skin General skin exam: turgor normal Neuro General: patient oriented x3, tone normal and moves all extremities Extrem Right lower extremity: no edema Left lower extremity: no edema Coding Level of Care Code Est Pt Level 3 (87749) Complex EM visit Add On G2211 Diagnoses Diabetes 1.5, managed as type 2 E13.9 Lipid disorder E78.9 BMI 30.0-30.9,adult Z68.30 Assessment & Plan Assessment & Plan (1) Diabetes 1.5, managed as type 2: Code(s): E13.9 - Other specified diabetes mellitus without complications Category: Medical (2) Lipid disorder: Code(s): E78.9 - Disorder of lipoprotein metabolism, unspecified Category: Medical (3) BMI 30.0-30.9,adult: Code(s): Z68.30 - Body mass index [BMI] 30.0-30.9, adult Category: Medical Plan Chief Complaint The patient presents for regular follow-up of diabetes and management of elevated cholesterol levels. Assessment and Plan 44-year-old male with a history of Type 2 Diabetes Mellitus presenting for a follow-up visit and monitoring of blood glucose levels and hyperlipidemia management. The patient reports successful management of diabetes with medication adherence resulting in significant improvement of hemoglobin A1c from 9.1% to 5.7%. Lipid panel reveals persistently elevated LDL levels at 147 mg/dL, requiring intervention. Other laboratory assessments indicate normal kidney and liver function, with high cholesterol being a concern. He reports no symptoms of diabetes complications such as polyuria, chest pains, or shortness of breath. 1. Type 2 Diabetes Mellitus The patient's diabetes is well-controlled with a current regimen of one tablet daily, resulting in a decrease in hemoglobin A1c from 9.1% to 5.7%, which is nearly within normal range. The patient is advised to continue current medication and monitor blood sugar levels at home, observing readings below 100 mg/dL. 2. Hyperlipidemia The patient has elevated LDL cholesterol at 147 mg/dL, which remains higher than the target level of less than 100 mg/dL. Discussed importance of dietary management in reducing cholesterol levels. The plan includes initiating a daily medication to lower LDL cholesterol levels, as current dietary measures alone are insufficient. The patient will undergo a fasting lipid profile in three months to reassess cholesterol management effectiveness. Problem List - Type 2 Diabetes Mellitus - Hyperlipidemi - obesity Patient Instructions - Continue taking current diabetes medication as prescribed. - Monitor blood glucose levels regularly at home. - Begin newly prescribed cholesterol-lowering medication daily as directed. - Maintain dietary restrictions aimed at cholesterol reduction. - Return for a fasting blood test in three months to evaluate cholesterol levels. - Watch for and report any new symptoms such as chest pains or shortness of breath immediately. Orders: Orders Hemoglobin A1c 3 Months E13.9 - Other specified diabetes mellitus without complications, E78.9 - Disorder of lipoprotein metabolism, unspecified, Z68.30 - Body mass index [BMI] 30.0-30.9, adult Complete Blood Count Auto Diff 3 Months E13.9 - Other specified diabetes mellitus without complications, E78.9 - Disorder of lipoprotein metabolism, unspecified, Z68.30 - Body mass index [BMI] 30.0-30.9, adult Comprehensive [place]. Panel Fast 3 Months E13.9 - Other specified diabetes mellitus without complications, E78.9 - Disorder of lipoprotein metabolism, unspecified, Z68.30 - Body mass index [BMI] 30.0-30.9, adult Lipid Panel 3 Months E13.9 - Other specified diabetes mellitus without complications, E78.9 - Disorder of lipoprotein metabolism, unspecified, Z68.30 - Body mass index [BMI] 30.0-30.9, adult Microalbumin, Random (w Creat) 3 Months E13.9 - Other specified diabetes mellitus without complications, E78.9 - Disorder of lipoprotein metabolism, unspecified, Z68.30 - Body mass index [BMI] 30.0-30.9, adult Medications: New simvastatin 20 mg PO DAILY 90 tabs 0RF Refilled glipizide-metformin 2.5-500 mg 1 tab PO DAILY 90 tabs 0RF
== END 2024-09-11 13:10 | disposition home or self-care (01) ==
PROVIDERS: PCP Internal Medicine; Visit Provider Internal Medicine
DX: E13.9 Other specified diabetes mellitus without complications (principal); E78.9 Disorder of lipoprotein metabolism, unspecified; Z68.30 Body mass index [BMI] 30.0-30.9, adult

== ENCOUNTER → 2024-09-11 10:58 | Outpatient (BNVA) | payer OTHER, SELFPAY | PROVIDERS: PCP Internal Medicine; Visit Provider Internal Medicine | DX: E13.9 Other specified diabetes mellitus without complications (principal); E78.9 Disorder of lipoprotein metabolism, unspecified | CPT/HCPCS: 99212 ==

== ENCOUNTER 2024-09-17 14:29 | Outpatient (REF) | payer SELFPAY ==
[2024-09-18 02:52] LABS: CT PCR NOT DETECTED (Not Detect.); NG PCR NOT DETECTED (Not Detect.)
[2024-09-19 04:54] LABS: Trichomonas vag. RNA Ur Male DETECTED (NOT DETECTED)
== END 2024-09-17 14:30 | disposition home or self-care (01) ==
LOC: HO.LAB 14:29
PROVIDERS: Physician Assistant; PCP Internal Medicine
DX: Z20.2 Contact with and (suspected) exposure to infections with a predominantly sexual mode of transmission (principal)
CPT/HCPCS: 87491; 87591; 87661; 99212

== ENCOUNTER 2024-09-17 14:29 | Outpatient (AMB) | payer SELFPAY ==
--- NOTE | 2024-09-17 14:41 | MHC.OFFWIV ---
Intake Vital Signs 09/17/24 14:42 Height 6 ft Weight 227 lb 8 oz BMI 30.9 BP 132/70 Blood Pressure Location Lt brachial Position Sitting Pulse 93 Pulse Source Pulse Oximeter Pulse Oximetry (%) 98 Oxygen Delivery Method Room Air Intake Visit Reasons: EP-std testing Patient Tobacco Use Status: Current everyday Tobacco user (1 PACK PER WEEK ) Allergies acetaminophen [From Tylenol-Codeine] Adverse Reaction (Mild, Verified 09/17/24 14:42) hives codeine [From Tylenol-Codeine] Adverse Reaction (Mild, Verified 09/17/24 14:42) hives Do you need a note to return to daycare/school/sports/work: No HPI HPI Comments History of Present Illness Details History of Present Illness The patient is a 44-year-old male presenting with concern for potential exposure to Trichomoniasis. The patient reports that his partner was recently treated for Trichomoniasis, prompting his visit to ensure he was not affected. He states there have been no symptoms such as unusual discharge, irritation, swelling, fever, or pain with urination. The patient sought medical evaluation immediately after learning about his partner's condition. He has not engaged in high-risk activities and has no prior history of sexually transmitted infections. There is no current health insurance, but he is transitioning to a different healthcare plan. Urinalysis showed no signs of infection. The patient seeks further testing for Trichomoniasis to rule out infection. Physical Exam General: Cooperative, healthy appearing, comfortable, no acute distress and well developed Orientation: Patient oriented x3 Limitations: No limitations Head: Normal to inspection Ears: Hearing grossly normal bilaterally Nose: Normal external nose present Face and sinus: Normal facial exam Eyes: Appearance normal, both eyes and all related structures Neck: Normal visual inspection and Yes full ROM Respiratory: Normal respiratory effort and able to speak in complete sentences. 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 Cognitive needs: No Hearing needs: No Vision needs: No Review of Systems Const All systems reviewed & are unremarkable except as noted in HPI and below Physical Exam Vital Signs: Last Vital Signs Pulse 93 09/17/24 14:42 BP 132/70 09/17/24 14:42 Pulse Ox 98 09/17/24 14:42 Oxygen Delivery Method Room Air 09/17/24 14:42 BMI result Body Mass Index 30.9 Assessment & Plan Assessment & Plan (1) Possible exposure to STI: Code(s): Z20.2 - Contact with and (suspected) exposure to infections with a predominantly sexual mode of transmission Plan: Plan - Ordered tests for Trichomoniasis along with tests for gonorrhea and chlamydia. Specimens will be sent to the hospital laboratory, and results will be communicated to the patient. - Advise the patient to abstain from sexual intercourse until test results are confirmed. If positive for any, an antibiotic prescription will be sent to the pharmacy. - Schedule a follow-up for re-evaluation and test of clearance post-treatment, if applicable. As patient has no insurance, I did order follow up testing to avoid him having to pay out of pocket for a visit for follow up tests. He can go directly to the lab to have the tests performed. - Monitor insurance coverage changes to ensure access to necessary care. Patient was informed and verbally consented to the use of an ambient scribe for clinic note documentation during this visit. Orders: Orders Trichomonas vag. RNA Ur Male 09/24/24 Z20.2 - Contact with and (suspected) exposure to infections with a predominantly sexual mode of transmission CT NG by PCR 09/24/24 Z20.2 - Contact with and (suspected) exposure to infections with a predominantly sexual mode of transmission Trichomonas vag. RNA Ur Male Today Z20.2 - Contact with and (suspected) exposure to infections with a predominantly sexual mode of transmission Coding Level of Care Code Est Pt Level 3 (13149) Diagnoses Possible exposure to STI Z20.2
[2024-09-17 14:42] VITALS: BP 132/70; PULSE 93; O2SAT 98; BMI 30.9
== END 2024-09-17 15:19 | disposition home or self-care (01) ==
PROVIDERS: PCP Internal Medicine; Visit Provider Physician Assistant
DX: Z20.2 Contact with and (suspected) exposure to infections with a predominantly sexual mode of transmission (principal)

== ENCOUNTER 2024-09-24 14:02 | Outpatient (REF) | payer MEDICAID, SELFPAY ==
[2024-09-25 19:38] LABS: Trichomonas vag. RNA Ur Male NOT DETECTED (NOT DETECTED)
== END 2024-09-24 14:03 | disposition home or self-care (01) ==
LOC: HO.HMGCLDS 14:02
PROVIDERS: PCP Internal Medicine; Visit Provider Physician Assistant
DX: Z20.2 Contact with and (suspected) exposure to infections with a predominantly sexual mode of transmission (principal)
CPT/HCPCS: 36415; 87661

== ENCOUNTER 2024-12-11 12:09 | Outpatient (REF) | payer OTHER, SELFPAY ==
[2024-12-11 16:17] LABS: MANUAL DIFF FLAG NO
[2024-12-11 16:39] LABS: Basophils Percent Auto 0.4 % (0-2); Eosinophils Absolute Auto 0.1 X10*3/uL (0.0-0.4); Eosinophils Percent Auto 1.6 % (0-4); Hematocrit 41.8 % (42.0-52.0); Hemoglobin 14.3 g/dl (14.0-18.0); Imm Gran Abs Auto 0.05 X10*3/uL (0.00-0.03); Imm Gran Pct Auto 0.6 % (0.0-0.4); Lymphocytes Absolute Auto 3.5 X10*3/uL (1.2-4.9); Lymphocytes Percent Auto 42.1 % (20-40); Mean Corpuscular HGB Conc 34.2 g/dl (31.0-36.0); Mean Corpuscular Hemoglobin 30.8 pg (27.0-33.0); Mean Corpuscular Volume 89.9 fL (80.0-98.0); Mean Platelet Volume 12.1 fL (9.4-12.4); Monocytes Absolute Auto 0.6 X10*3/uL (0.1-1.2); Monocytes Percent Auto 6.6 % (2-11); Neutrophils Absolute Auto 4.1 x10*3/uL (2.0-8.3); Neutrophils Percent Auto 48.7 % (45-73); Platelet Count 254 X10*3/uL (160-400); Red Blood Count 4.65 X10*6/uL (4.60-5.80); Red Cell Distribution Width 15.2 % (11.0-16.0); White Blood Count 8.4 X10*3/uL (4.8-10.8)
[2024-12-11 16:47] LABS: Alanine Aminotransferase 21 U/L (0-40); Albumin Level 4.4 g/dL (3.5-5.0); Alkaline Phosphatase 81 U/L (39-117); Anion Gap 13 (12-20); Aspartate Amino Transferase 24 U/L (5-37); Bilirubin Total 0.3 mg/dL (0.0-1.0); Blood Urea Nitrogen 13 mg/dL (9-16); Calcium 9.3 mg/dL (8.4-10.2); Carbon Dioxide 22 mmol/L (22-29); Chloride 110 mmol/L (96-108); Cholesterol 173 mg/dL (<200); Estimated Glomerular Filt Rate > 60; Glucose Fasting 71 mg/dL (60-99); HDL Cholesterol 39 mg/dL (>40); LDL Cholesterol Calculated 110 mg/dL (<100); Potassium 3.9 mmol/L (3.3-5.1); Sodium 141 mmol/L (135-145); Total Protein 7.8 g/dL (6.5-8.0); Triglycerides 124 mg/dL (<150)
[2024-12-11 16:56] LABS: Estimated Average Glucose 123 mg/dL; Hemoglobin A1C 148.8909 umol/L; Hemoglobin A1c % 5.9 % (<6.0); Total Hemoglobin (HGBA1C) 3634.8008 umol/L
[2024-12-11 17:14] LABS: Creatinine Urine 261.75 mg/dL; Microalbum/Creatinine Ratio Ur 7.2 ug/mg cr (<30)
== END 2024-12-11 12:10 | disposition home or self-care (01) ==
LOC: HO.HMGCLDS 12:09
PROVIDERS: PCP Internal Medicine; Visit Provider Internal Medicine
DX: E13.9 Other specified diabetes mellitus without complications (principal); E78.9 Disorder of lipoprotein metabolism, unspecified
CPT/HCPCS: 36415; 80053; 80061; 82043; 82570; 83036; 85025; 96127; 99212

== ENCOUNTER 2024-12-11 12:09 | Outpatient (AMB) | payer OTHER, SELFPAY ==
--- NOTE | 2024-12-11 12:12 | A.OFFPC_ITS ---
Vital Signs 12/11/24 12:15 Height 6 ft Weight 226 lb 4 oz BMI 30.7 BP 112/72 Blood Pressure Location Rt brachial Position Sitting Pulse 79 Pulse Source Pulse Oximeter Pulse Oximetry (%) 97 Oxygen Delivery Method Room Air Intake Visit Reasons: 3m follow up Allergies acetaminophen [From Tylenol-Codeine] Adverse Reaction (Mild, Verified 12/11/24 12:17) hives codeine [From Tylenol-Codeine] Adverse Reaction (Mild, Verified 12/11/24 12:17) hives Medication List - Last Reconciled 12/11/24 by Rose Kinney MD blood sugar diagnostic (FreeStyle Lite Strips) Use 1 test strip once a day blood-glucose meter (FreeStyle Lite Meter kit) As directed glipizide-metformin 2.5-500 mg 1 tab PO DAILY lancets (FreeStyle Lancets) Test blood sugar twice a day simvastatin 20 mg PO DAILY Tobacco use date assessed: 12/11/24 Dental Screening Dental Screen Date: 12/11/24 Did you have a dental visit in the last 12 months?: Yes Did you have a dental problem in the last 6 months where you did not have access to dental care?: No Was dental information given to patient?: Patient has dentist HPI 3m follow up HPI Details History - The patient is a 44-year-old male pres enting with follow-up for management of Type 2 Diabetes Mellitus and Hyperlipidemia. - Improved glycemic control noted with H emoglobin A1c reduced from 9.1% to 5.7% as per labs done in September - Hyperlipidemia management has shown pa rtial improvement with decreased LDL levels from 168 mg/dL to 147 mg/dL. With simvastatin 20 mg - Current pharmacologic regimen includes Glipizide-Metformin and Simvastatin, with discussions on increasing the Simvastatin dose to further reduce LDL levels. - Reports compliance with medication and readiness for regular fasting blood tests, preceding quarterly follow-up visits. - Denies systemic symptoms such as nause a, vomiting, or swelling of the ankles. Problem List - Type 2 Diabetes Mellitus - Hyperlipidemia Patient Instructions - Continue taking Glipizide-Metformin an d increase Simvastatin to 40 mg from 20 mg - Use blood glucose test strips twice a day, and ensure enough supply to prevent shortages. - Schedule blood tests before your next visit in four months. - Monitor for any new or worsening sympt oms and report immediately if they occur. Review of Systems - General: No fever no chills - Neurological: No headaches no dizziness - Ear nose throat: No sore throat no hearing difficulty no ear pain - Cardiovascular: No syncope, no chest pain, no palpitations - Gastrointestinal: No nausea vomiting or diarrhea - Endocrine: No polyuria polydipsia no heat intolerance - Genitourinary: No dysuria , no blood in urine Physical Exam General: No acute distress HEENT: No acute findings Neck: Supple Respiratory system: Able to talk in full sentences, no audible wheeze cardiovascular: S1-S2 regular in rate and rhythm Gastrointestinal: No pain, no abdominal pain, nausea, vomiting Extremities: No new findings, no swelling of ankles [employer]: Alert awake oriented x3 motor sensory intact Skin: Normal turgor [facility] Medical History Diabetes 1.5, managed as type 2 Social History Housing: House Patient Tobacco Use Status: Current everyday Tobacco user (1 PACK PER WEEK ) Tobacco use type: Cigarette Cigarette Packs Per Day: 0.5 Cigarettes Per Day: 5 Years Smoked: 10 e-Cigarette/Vaping Use: Never Used Current occupational status: unemployed 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 1. Little interest or pleasure in doing things: not at all 2. Feeling down, depressed, or hopeless: not at all 3. Trouble falling or staying asleep, or sleeping too much: not at all 4. Feeling tired or having little energy: not at all 5. Poor appetite or overeating: not at all 6. Feeling bad about yourself - or that you are a failure or have let yourself or your family down: not at all 7. Trouble concentrating on things, such as reading the newspaper or watching television: not at all 8. Moving or speaking so slowly that other people could have noticed. Or the opposite - being so fidgety or restless that you have been moving around a lot more than usual: not at all 9. Thoughts that you would be better off or of hurting yourself in some way: not at all Total score: 0 Depression Screening Interpretation: Negative Depression Screening Done: Yes 12921 - PHQ-9 Billing: Yes Source: Developed by Drs. Johnny Raymundo, Sharifa Ballesteros, Vijay Abarca and colleagues, with an educational vipin from [employer]. Thrive Questionnaire Date Thrive assessed: 12/11/24 I am a: Patient What is your living situation today?: I have a steady place to live Within the past 12 months, did the food you bought not last and you didn't have the money to get more?: Never true Within the past 12 months, did you worry whether your food would run out before you got money to buy more?: Never true Do you have trouble paying for medicines?: No Do you have trouble getting transportation to medical appointments?: No Do you have trouble paying your heating and electricity bill?: No Do you have trouble taking care of your child, family member or friend?: No Do you have trouble with day-to-day activities such as bathing, preparing meals, shopping, managing finances, etc.?: No Are you currently unemployed and looking for a job?: No Are you interested in more education?: No Please select the resources that you would like help with: None Currently or been in a relationship where the following occur: No concerns reported THRIVE Score: 0 AUDIT C Alcohol Use Questionnaire (AUDIT-C) 1. How often do you have a drink containing alcohol?: Never 3. How often do you have six or more drinks on one occasion?: Never Total Score: 0 Score Reviewed/Action Taken: Yes GERALD-7 AMB Questionnaire GERALD-7 Date GERALD - 7 assessed: 12/11/24 Feeling nervous, anxious, or on edge: 0 = Not at all Not being able to stop or control worryin = Not at all Worrying too much about different things: 0 = Not at all Trouble relaxin = Not at all Being so restless that it is hard to sit still: 0 = Not at all Becoming easily annoyed or irritable: 0 = Not at all Feeling afraid as if something awful might happen: 0 = Not at all Total GERALD-7 score (0-4 normal; 5-9 mild; 10-14 moderate; 15-21 severe): 0 Source: Developed by Drs. Johnny Raymundo, Sharifa Ballesteros, Vijay Abarca and colleagues, with an educational vipin from [employer]. GERALD-7 Assessment Billing GERALD-7 Assessment Tool: GERALD-7 Assessment 69110 Physical exam (Primary Care) Vital Signs: Last Vital Signs Pulse 79 12/11/24 12:15 BP 112/72 12/11/24 12:15 Pulse Ox 97 12/11/24 12:15 Oxygen Delivery Method Room Air 12/11/24 12:15 BMI result Body Mass Index 30.7 Tobacco/Smoking Status: Tobacco use Status Tobacco use date assessed 12/11/24 12/11/24 12:18 Patient Tobacco Use Status Current everyday Tobacco (1 12/11/24 12:14 PACK PER WEEK ) Tobacco use type Cigarette 12/11/24 12:14 e-Cigarette/Vaping Use Never Used 12/11/24 12:14 PHQ-9: PHQ-9 Score PHQ-9: Total score 0 12/11/24 12:18 Depression Screening Interpretation: Negative Thrive Assessment: Date of Thrive Assessment Date Thrive assessed 12/11/24 12/11/24 12:18 Currently or been in a relationship where the following occur: No concerns reported Coding Level of Care Code Est Pt Level 3 (66000) Diagnoses Diabetes 1.5, managed as type 2 E13.9 Lipid disorder E78.9 BMI 30.0-30.9,adult Z68.30 Additional Codes GEARLD-7 Assessment Billing - GERALD-7 Assessment Tool: GERALD-7 Assessment 82019 ([id number]) PHQ-9 - 25831 - PHQ-9 Billing: Yes ([id number]) Assessment & Plan Assessment & Plan (1) Diabetes 1.5, managed as type 2: Code(s): E13.9 - Other specified diabetes mellitus without complications Category: Medical (2) Lipid disorder: Code(s): E78.9 - Disorder of lipoprotein metabolism, unspecified Category: Medical (3) BMI 30.0-30.9,adult: Code(s): Z68.30 - Body mass index [BMI] 30.0-30.9, adult Category: Medical Plan History - The patient is a 44-year-old male presenting with follow-up for management of Type 2 Diabetes Mellitus and Hyperlipidemia. - Improved glycemic control noted with Hemoglobin A1c reduced from 9.1% to 5.7% as per labs done in September - Hyperlipidemia management has shown partial improvement with decreased LDL levels from 168 mg/dL to 147 mg/dL. With simvastatin 20 mg - Current pharmacologic regimen includes Glipizide-Metformin and Simvastatin, with discussions on increasing the Simvastatin dose to further reduce LDL levels. - Reports compliance with medication and readiness for regular fasting blood tests, preceding quarterly follow-up visits. - Denies systemic symptoms such as nausea, vomiting, or swelling of the ankles. Problem List - Type 2 Diabetes Mellitus - Hyperlipidemia Patient Instructions - Continue taking Glipizide-Metformin and increase Simvastatin to 40 mg from 20 mg - Use blood glucose test strips twice a day, and ensure enough supply to prevent shortages. - Schedule blood tests before your next visit in four months. - Monitor for any new or worsening symptoms and report immediately if they occur. Orders: Orders Complete Blood Count Auto Diff 3 Months E13.9 - Other specified diabetes mellitus without complications, E78.9 - Disorder of lipoprotein metabolism, unspecified, Z68.30 - Body mass index [BMI] 30.0-30.9, adult Lipid Panel 3 Months E13.9 - Other specified diabetes mellitus without complications, E78.9 - Disorder of lipoprotein metabolism, unspecified, Z68.30 - Body mass index [BMI] 30.0-30.9, adult Hemoglobin A1c 3 Months E13.9 - Other specified diabetes mellitus without complications, E78.9 - Disorder of lipoprotein metabolism, unspecified, Z68.30 - Body mass index [BMI] 30.0-30.9, adult Comprehensive [place]. Panel Fast 3 Months E13.9 - Other specified diabetes mellitus without complications, E78.9 - Disorder of lipoprotein metabolism, unspecified, Z68.30 - Body mass index [BMI] 30.0-30.9, adult Medications: Changed From blood sugar diagnostic (FreeStyle Lite Strips) Use 1 test strip once a day 100 ea 0RF E13.9 - Other specified diabetes mellitus without complications To blood sugar diagnostic (FreeStyle Lite Strips) Use 1 test strip BID to check sugar 200 ea 3RF E13.9 - Other specified diabetes mellitus without complications From simvastatin 20 mg PO DAILY 90 tabs 1RF To simvastatin 40 mg PO DAILY 90 tabs 1RF Refilled simvastatin 20 mg PO DAILY 90 tabs 1RF
[2024-12-11 12:15] VITALS: BP 112/72; PULSE 79; O2SAT 97; BMI 30.7
== END 2024-12-11 14:16 | disposition home or self-care (01) ==
PROVIDERS: PCP Internal Medicine; Visit Provider Internal Medicine
DX: E13.9 Other specified diabetes mellitus without complications (principal); E78.9 Disorder of lipoprotein metabolism, unspecified; Z68.30 Body mass index [BMI] 30.0-30.9, adult

== ENCOUNTER 2025-04-25 13:40 | Outpatient (REF) | payer OTHER, SELFPAY ==
[2025-04-25 16:08] LABS: MANUAL DIFF FLAG NO
[2025-04-25 16:16] LABS: Hematocrit 40.9 % (42.0-52.0); Hemoglobin 14.1 g/dl (14.0-18.0); Imm Gran Abs Auto 0.07 X10*3/uL (0.00-0.03); Imm Gran Pct Auto 0.7 % (0.0-0.4); Lymphocytes Absolute Auto 4.7 X10*3/uL (1.2-4.9); Mean Corpuscular HGB Conc 34.5 g/dl (31.0-36.0); Mean Corpuscular Hemoglobin 30.9 pg (27.0-33.0); Mean Corpuscular Volume 89.5 fL (80.0-98.0); NRBC Abs Auto 0.000 X10*3/uL (0.0-0.012); NRBC Pct Auto 0.0 /100WBC (0.0-0.2); Platelet Count 258 X10*3/uL (160-400); Red Blood Count 4.57 X10*6/uL (4.60-5.80); White Blood Count 10.6 X10*3/uL (4.8-10.8)
[2025-04-25 16:27] LABS: Hemoglobin A1C 170.6922 umol/L; Total Hemoglobin (HGBA1C) 3632.6996 umol/L
[2025-04-25 16:46] LABS: Alanine Aminotransferase 21 U/L (0-40); Albumin Level 4.8 g/dL (3.5-5.0); Alkaline Phosphatase 87 U/L (39-117); Anion Gap 12 (12-20); Aspartate Amino Transferase 24 U/L (5-37); Blood Urea Nitrogen 15 mg/dL (9-16); Calcium 9.3 mg/dL (8.4-10.2); Carbon Dioxide 24 mmol/L (22-29); Chloride 106 mmol/L (96-108); Cholesterol 236 mg/dL (<200); Estimated Glomerular Filt Rate > 60; HDL Cholesterol 37 mg/dL (>40); Potassium 3.9 mmol/L (3.3-5.1); Sodium 138 mmol/L (135-145); Total Protein 7.6 g/dL (6.5-8.0); Triglycerides 164 mg/dL (<150)
== END 2025-04-25 13:41 | disposition home or self-care (01) ==
LOC: HO.HMGCLDS 13:40
PROVIDERS: PCP Internal Medicine; Visit Provider Internal Medicine
DX: E13.9 Other specified diabetes mellitus without complications (principal); E78.9 Disorder of lipoprotein metabolism, unspecified
CPT/HCPCS: 36415; 80053; 80061; 83036; 85025

== ENCOUNTER 2025-04-26 14:24 | Outpatient (AMB) | payer OTHER, SELFPAY ==
[2025-04-26 14:27] VITALS: BP 110/70; PULSE 90; O2SAT 97; BMI 32.8
--- NOTE | 2025-04-26 14:27 | MHC.PC.OV ---
Vital Signs 04/26/25 14:27 Height 6 ft Weight 242 lb BMI 32.8 BP 110/70 Blood Pressure Location Lt brachial Position Sitting Pulse 90 Pulse Source Pulse Oximeter Pulse Oximetry (%) 97 Intake Visit Reasons: Annual PE Instructional Support Specialist Required: No Accompanied by: Self / Same As Patient Allergies acetaminophen (From Tylenol-Codeine) Adverse Reaction (Mild, Verified 04/26/25 14:28) hives codeine (From Tylenol-Codeine) Adverse Reaction (Mild, Verified 04/26/25 14:28) hives Medication List - Last Reconciled 04/26/25 by Rose Kinney MD blood sugar diagnostic (FreeStyle Lite Strips) Use 1 test strip BID to check sugar blood-glucose meter (FreeStyle Lite Meter kit) As directed glipizide-metformin 2.5-500 mg 1 tab PO DAILY lancets (FreeStyle Lancets) Test blood sugar twice a day simvastatin 40 mg PO DAILY Tobacco use date assessed: 12/11/24 Dental Screening Dental Screen Date: 12/11/24 HPI Annual PE HPI Details - The patient is a 44-year-old male presenting with medication management concerns and for a physical examination. - He reports that he has not been able to obtain his medication for a week because the pharmacy informed him it was back ordered. - His last medication use was a week ago, impacting his blood sugar levels, which have increased from a previous average of 5.9% to 6.5%. - LDL cholesterol has risen from 110 in December to 167. - He has recently resumed weekly physical activity with [employer] basketball after a temporary cessation. - There are no reported chest pains, shortness of breath, ankle swelling, nausea, or vomiting. Medical History: - Hyperlipidemia - Previous elevated LDL cholesterol recorded at 168, then decreased and has risen again to 167. - Hyperglycemia with recent increases noted over a four-month average. Social History: - Participates in [employer] basketball every Tuesday. - Recently resumed physical activities after a period of inactivity. Health Maintenance - Due for tetanus vaccine; the last vaccination was in 2012, and the patient opts to receive it today. - Lab results indicated an increase in LDL cholesterol and hyperglycemic levels, necessitating further monitoring and intervention. Diagnostic results - Labs: Kidney function and electrolytes are within normal limits. Sugars have increased slightly. Liver function tests are normal. LDL cholesterol increased to 167. Patient Instructions - Obtain prescription printout to check availability at another pharmacy or consider medications if combination tablets remain unavailable. - Return in four months for follow-up regarding glucose levels and monitoring of lipid levels. - Proceed to receive tetanus vaccine today. Review of Systems - General: No fever no chills - Neurological: No headaches no dizziness - Ear nose throat: No sore throat no hearing difficulty no ear pain - Cardiovascular: No syncope, no chest pain, no palpitations - Gastrointestinal: No nausea vomiting or diarrhea - Endocrine: No polyuria polydipsia no heat intolerance - Genitourinary: No dysuria - Skin: No new complaints Physical Exam General: Cooperative, healthy appearing, comfortable, no acute distress Orientation: Patient oriented x3 Head: Normal to inspection Ears: Within normal limit visually Nose: Normal external nose present Face and sinus: Normal facial exam Eyes: Appearance normal, extraocular movement intact pupils reactive Neck: Normal visual inspection and supple Respiratory: Normal respiratory effort and able to speak in complete sentences. Clear to auscultation, no stridor Cardiovascular: S1 and S2 RRR GI: Normal to inspection. Soft to palpation and nontender Skin: Turgor normal, no acute findings Neuro: Patient oriented x3, motor sensory intact, balance intact, tandem pass Extremities: Normal to inspection range of motion intact [facility] Medical History Diabetes 1.5, managed as type 2 Surgical History No pertinent past surgical history Social History Housing: House Patient Tobacco Use Status: Current everyday Tobacco user (1 PACK PER WEEK ) Tobacco use type: Cigarette Cigarette Packs Per Day: 0.5 Cigarettes Per Day: 5 Years Smoked: 10 e-Cigarette/Vaping Use: Never Used Current occupational status: unemployed 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 Cognitive needs: No Hearing needs: No Vision needs: No Questionnaire Thrive Questionnaire Date Thrive assessed: 04/26/25 I am a: Patient What is your living situation today?: I have a steady place to live Within the past 12 months, did the food you bought not last and you didn't have the money to get more?: Never true Within the past 12 months, did you worry whether your food would run out before you got money to buy more?: Never true Do you have trouble paying for medicines?: No Do you have trouble getting transportation to medical appointments?: No Do you have trouble paying your heating and electricity bill?: No Do you have trouble taking care of your child, family member or friend?: No Do you have trouble with day-to-day activities such as bathing, preparing meals, shopping, managing finances, etc.?: No Are you currently unemployed and looking for a job?: No Are you interested in more education?: No Please select the resources that you would like help with: None Currently or been in a relationship where the following occur: No concerns reported THRIVE Score: 0 GERALD-7 AMB Questionnaire GERALD-7 Date GERALD - 7 assessed: 12/11/24 Source: Developed by Drs. Johnny Raymundo, Sharifa Ballesteros, Vijay Abarca and colleagues, with an educational vipin from [employer]. Physical exam (Primary Care) Vital Signs: Last Vital Signs Pulse 90 04/26/25 14:27 BP 110/70 04/26/25 14:27 Pulse Ox 97 04/26/25 14:27 BMI result Body Mass Index 32.8 Tobacco/Smoking Status: Tobacco use Status Tobacco use date assessed 12/11/24 04/26/25 14:30 Patient Tobacco Use Status Current everyday Tobacco (1 04/26/25 14:30 PACK PER WEEK ) Tobacco use type Cigarette 04/26/25 14:30 e-Cigarette/Vaping Use Never Used 04/26/25 14:30 Thrive Assessment: Date of Thrive Assessment Date Thrive assessed 04/26/25 04/26/25 14:30 Currently or been in a relationship where the following occur: No concerns reported Immunizations Boostrix Tdap 2.5 Lf unit-8 mcg-5 Lf/0.5 mL intramuscular syringe Performing Provider: Rose Kinney MD Performing Location: [facility] Administered by: Ruben Augustine CMA on 04/26/25 14:49 Dose Route Admin Location Dispensed Lot Number Expiration Date [facility] Escalation Engineer 0.5 mL IM Right Deltoid 0.5 mL [id number] 06/08/27 [id number] [employer] Total Dispensed Waste 0.5 mL 0 % VIS Given Date VIS Provided VIS Publication Date 04/26/25 Single Vaccine 21 Eligibility Eligibility Date Funding Source Not [facility] Eligible 04/26/25 Private Coding Level of Care Code Est Pt Level 3 (82068) Est Pt Prev Care 40-64y(23676) Diagnoses Encounter for general adult medical examination with abnormal findings Z00.01 Diabetes 1.5, managed as type 2 E13.9 Lipid disorder E78.9 Immunizations incomplete Z28.39 Assessment & Plan Assessment & Plan (1) Encounter for general adult medical examination with abnormal findings: Code(s): Z00.01 - Encounter for general adult medical examination with abnormal findings Category: Medical (2) Diabetes 1.5, managed as type 2: Code(s): E13.9 - Other specified diabetes mellitus without complications Category: Medical (3) Lipid disorder: Code(s): E78.9 - Disorder of lipoprotein metabolism, unspecified Category: Medical (4) Immunizations incomplete: Code(s): Z28.39 - Other underimmunization status Category: Medical Plan - The patient is a 44-year-old male presenting with medication management concerns and for a physical examination. - He reports that he has not been able to obtain his medication for a week because the pharmacy informed him it was back ordered. - His last medication use was a week ago, impacting his blood sugar levels, which have increased from a previous average of 5.9% to 6.5%. - LDL cholesterol has risen from 110 in December to 167. - He has recently resumed weekly physical activity with [employer] basketball after a temporary cessation. - There are no reported chest pains, shortness of breath, ankle swelling, nausea, or vomiting. Medical History: - Hyperlipidemia - Previous elevated LDL cholesterol recorded at 168, then decreased and has risen again to 167. - Hyperglycemia with recent increases noted over a four-month average. Social History: - Participates in [employer] basketball every Tuesday. - Recently resumed physical activities after a period of inactivity. Health Maintenance - Due for tetanus vaccine; the last vaccination was in 2012, and the patient opts to receive it today. - Lab results indicated an increase in LDL cholesterol and hyperglycemic levels, necessitating further monitoring and intervention. Diagnostic results - Labs: Kidney function and electrolytes are within normal limits. Sugars have increased slightly. Liver function tests are normal. LDL cholesterol increased to 167. Patient Instructions - Obtain prescription printout to check availability at another pharmacy or consider medications if combination tablets remain unavailable. - Return in four months for follow-up regarding glucose levels and monitoring of lipid levels. - Proceed to receive tetanus vaccine today. Orders: Orders TDaP Immunization Today Z23 - Encounter for immunization Comprehensive [place]. Panel Fast 3 Months E13.9 - Other specified diabetes mellitus without complications, E78.9 - Disorder of lipoprotein metabolism, unspecified Hemoglobin A1c 3 Months E13.9 - Other specified diabetes mellitus without complications, E78.9 - Disorder of lipoprotein metabolism, unspecified Lipid Panel 3 Months E13.9 - Other specified diabetes mellitus without complications, E78.9 - Disorder of lipoprotein metabolism, unspecified Medications: Refilled glipizide-metformin 2.5-500 mg 1 tab PO DAILY 90 tabs 1RF
== END 2025-04-26 14:52 | disposition home or self-care (01) ==
LOC: HO.HMCC 14:25
PROVIDERS: PCP Internal Medicine; Visit Provider Internal Medicine
DX: Z00.01 Encounter for general adult medical examination with abnormal findings (principal); E13.9 Other specified diabetes mellitus without complications; E78.9 Disorder of lipoprotein metabolism, unspecified; Z28.39 Other underimmunization status; Z23 Encounter for immunization

== ENCOUNTER → 2025-04-26 14:24 | Outpatient (BNVA) | payer OTHER, SELFPAY | PROVIDERS: PCP Internal Medicine; Visit Provider Internal Medicine | DX: Z00.01 Encounter for general adult medical examination with abnormal findings (principal); Z23 Encounter for immunization; E13.9 Other specified diabetes mellitus without complications; E78.9 Disorder of lipoprotein metabolism, unspecified; Z28.39 Other underimmunization status | CPT/HCPCS: 90471; 90715; 99212; 99396 ==

== ENCOUNTER → 2025-06-21 09:25 | Outpatient (BNVA) | payer OTHER, SELFPAY | PROVIDERS: PCP Internal Medicine; Visit Provider Emergency Medicine | DX: S62.633A Displaced fracture of distal phalanx of left middle finger, initial encounter for closed fracture (principal); W20.8XXA Other cause of strike by thrown, projected or falling object, initial encounter | CPT/HCPCS: 73140; 99203 ==

== ENCOUNTER → 2025-06-24 08:20 | Outpatient (BNVA) | payer OTHER, SELFPAY | PROVIDERS: PCP Internal Medicine; Visit Provider Emergency Medicine | DX: S62.633A Displaced fracture of distal phalanx of left middle finger, initial encounter for closed fracture (principal); W20.8XXA Other cause of strike by thrown, projected or falling object, initial encounter; Z02.79 Encounter for issue of other medical certificate | CPT/HCPCS: 99213 ==

== ENCOUNTER → 2025-07-02 14:26 | Outpatient (BNVA) | payer OTHER, SELFPAY | PROVIDERS: PCP Internal Medicine; Visit Provider Emergency Medicine | DX: S67.193A Crushing injury of left middle finger, initial encounter (principal); S62.633A Displaced fracture of distal phalanx of left middle finger, initial encounter for closed fracture; W20.8XXA Other cause of strike by thrown, projected or falling object, initial encounter | CPT/HCPCS: 99213 ==

== ENCOUNTER 2025-07-02 15:17 | Emergency (ER) | payer OTHER, SELFPAY ==
--- NOTE | ~2025-07-02 | XR_ITS ---
EXAMINATION: XR THIRD DIGIT, LEFT CLINICAL INFORMATION: continued pain to L 3rd digit s/p fx COMPARISON: 06/21/2025 TECHNIQUE: Three views of the left third digit. FINDINGS: There is redemonstration of a comminuted distal tuft fracture of the distal phalanx of the third digit. No gross interval healing is evident and fracture lines are still well seen. There is associated soft tissue swelling of the tip of the third digit. There are no additional fractures. There is normal alignment. Joint spaces are normal. XR/XR finger LT min 2V IMPRESSION: No significant interval change. Comminuted tuft fracture of the distal tuft of the distal phalanx of the third digit. Electronically signed by: Romario Sands MD 07/02/2025 03:44 PM EDT
[2025-07-02 15:24] VITALS: BP 123/73; PULSE 76; RESP 18; TEMP 36.6; O2SAT 98; BMI 32.1
--- NOTE | 2025-07-02 15:24 | ED_ITS ---
HPI - Extremity Injury (Upper) General Chief Complaint: Extremity Injury, Upper Stated Complaint: Finger injury, from work connection Time Seen by Provider: 07/02/25 20:08 Source: patient Mode of arrival: ambulatory Limitations: no limitations History of Present Illness ED Provider: Romario BARRAZA HPI narrative: The patient is a 44-year-old male presenting to the ED for evaluation of worsening swelling and pain of the left 3rd digit. The patient suffered a crush injury of the left 3rd digit on 06/20, was seen at work connection and diagnosed with a tuft fracture of the distal phalanx. The patient was treated with immobilization and cephalexin. Patient reports symptoms began improving, reports improvement in swelling and pain on the radial aspect of the finger, patient completed his antibiotic regimen however recently developed worsening pain on the ulnar aspect of the area of injury with increase in swelling, prompting call to work connection who sent the patient to the ED for evaluation of potential worsening infection. The patient denies any re-injury. Related Data Previous Rx's ?Medication ?Instructions ?Recorded blood-glucose meter (FreeStyle #1 ea 06/13/24 Lite Meter kit) blood sugar diagnostic (FreeStyle #200 ea 12/11/24 Lite Strips) simvastatin 40 mg tablet 40 mg PO DAILY #90 tabs 02/01 lancets 28 gauge (FreeStyle #100 ea 01/30/25 Lancets) glipizide 2.5 mg-metformin 500 mg 1 tab PO DAILY #90 t abs 04/26/25 tablet cephalexin 500 mg capsule 500 mg PO Q8H crush injury # 21 caps 06/21/25 sulfamethoxazole 800 1 tab PO BID #14 tabs mg-trimethoprim 160 mg tablet (Bactrim DS) Allergies Allergy/AdvReac Type Severity Reaction Status Date / Time acetaminophen (From AdvReac Mild hives Verified 07/02/25 15:26 Tylenol-Codeine) codeine (From AdvReac Mild hives Verified 07/02/25 15:26 Tylenol-Codeine) PMFSH Past Medical History Medical History Diabetes 1.5, managed as type 2 Surgical History No pertinent past surgical history Social History Social History Housing: House Patient Tobacco Use Status: Current everyday Tobacco user (1 PACK PER WEEK ) Tobacco use type: Cigarette Cigarette Packs Per Day: 0.5 Cigarettes Per Day: 5 Years Smoked: 10 e-Cigarette/Vaping Use: Never Used Current occupational status: unemployed 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 Full HPI, ROS, assessment and treatment plan per primary provider in the Main ED. Hx: 44 yo M here from work connection for worsening pain to left 3rd digit. admits to dropping a 40lb weight on the finger a few weeks back- found to have fx of distal tuft. has since completed an antibiotic. sent here for concerns of worsening infection as patient is diabetic. PE/vitals: noted swelling to distal aspect of left 3rd digit. no significant erythema. no subungal hematoma. Plan: basic labs, xrs Medications Administered Discontinued Medications Generic Name Dose Route Start Last Admin Trade Name Freq PRN Reason Stop Dose Admin Lidocaine HCl 5 ml 07/02/25 20:36 07/02/25 20:54 Lidocaine Hcl 1 % Mpf 5 Ml Vial INFILTRATI 07/02/25 20:37 5 ml ONCE ONE Administration Trimethoprim/Sulfamethoxazole 1 tab 07/02/25 20:37 07/02/25 21:02 Sulfamethox/Trimeth 800/160 Tablet PO 07/02/25 20:38 1 tab ONCE ONE Administration Medical Decision Making Medical Decision Making MDM Narrative: 8:56 PM 07/02/2025 (Derek BARRAZA): The patient is a 44-year-old male presenting to the ED for evaluation of worsening swelling and pain of the left 3rd digit. The patient suffered a crush injury of the left 3rd digit on 06/20, was seen at work connection and diagnosed with a tuft fracture of the distal phalanx. The patient was treated with immobilization and cephalexin. Patient reports symptoms began improving, reports improvement in swelling and pain on the radial aspect of the finger, patient completed his antibiotic regimen however recently developed worsening pain on the ulnar aspect of the area of injury with increase in swelling, prompting call to work connection who sent the patient to the ED for evaluation of potential worsening infection. The patient denies any re- injury. The patient's exam shows increased swelling of the distal phalanx of the 3rd left digit, there is no obvious fluid collection, however there is significant swelling and skin tension noted to the ulnar aspect of the cuticle. Laboratory evaluation shows no leukocytosis, significant anemia, electrolyte abnormality, or ARACELI. The patient's x-ray redemonstrates previously imaged tuft fracture, there was no mention of other cortical irregularity or evidence of osteomyelitis. We will treat with Bactrim, and performed digital block to attempt drainage of any possible paronychia. Admission/Observation Consideration of admission/observation: Escalation of care including admission/observation considered Lab Data MDM Lab Attestation statement: I reviewed the patient's lab results. 07/02/25 15:55 07/02/25 15:55 Labs: Lab Results 07/02/25 Range/Units 15:55 WBC 9.6 (4.8-10.8) X10*3/uL RBC 4.37 L (4.60-5.80) X10*6/uL Hgb 13.2 L (14.0-18.0) g/dl Hct 39.5 L (42.0-52.0) % MCV 90.4 (80.0-98.0) fL MCH 30.2 (27.0-33.0) pg MCHC 33.4 (31.0-36.0) g/dl RDW 14.3 (11.0-16.0) % Plt Count 243 (160-400) X10*3/uL MPV 11.3 (9.4-12.4) fL Immature Gran % (Auto) 0.4 (0.0-0.4) % Neut % (Auto) 45.2 (45-73) % Lymph % (Auto) 43.8 H (20-40) % [place] % (Auto) 7.9 (2-11) % Eos % (Auto) 2.3 (0-4) % Baso % (Auto) 0.4 (0-2) % Lymph # (Auto) 4.2 (1.2-4.9) X10*3/uL [place] # (Auto) 0.8 (0.1-1.2) X10*3/uL Eos # (Auto) 0.2 (0.0-0.4) X10*3/uL Baso # (Auto) 0.0 (0.0-0.2) X10*3/uL Abs Immat Gran (auto) 0.04 H (0.00-0.03) X10*3/uL Absolute Neuts (auto) 4.4 (2.0-8.3) x10*3/uL Absolute Nucleated RBC 0.000 (0.0-0.012) X10*3/uL Nucleated RBC % (auto) 0.0 (0.0-0.2) /100WBC Sodium 141 (135-145) mmol/L Potassium 4.1 (3.3-5.1) mmol/L Chloride 109 H (96-108) mmol/L Carbon Dioxide 27 (22-29) mmol/L Anion Gap 9 L (12-20) BUN 11 (9-16) mg/dL Creatinine 0.98 (0.5-1.4) mg/dL Estim Creat Clear Calc 119.4 Estimated GFR > 60 Random Glucose 84 (60-115) mg/dL Calcium 9.6 (8.4-10.2) mg/dL Total Bilirubin 0.3 (0.0-1.0) mg/dL AST 23 (5-37) U/L ALT 19 (0-40) U/L Alkaline Phosphatase 73 (39-117) U/L Total Protein 7.6 (6.5-8.0) g/dL Albumin 4.8 (3.5-5.0) g/dL Radiology Impression Discussion of test interpretation with radiology: I have reviewed the radiologist's reading. Radiologist Impression: EXAMINATION: XR THIRD DIGIT, LEFT CLINICAL INFORMATION: continued pain to L 3rd digit s/p fx COMPARISON: 06/21/2025 TECHNIQUE: Three views of the left third digit. FINDINGS: There is redemonstration of a comminuted distal tuft fracture of the distal phalanx of the third digit. No gross interval healing is evident and fracture lines are still well seen. There is associated soft tissue swelling of the tip of the third digit. There are no additional fractures. There is normal alignment. Joint spaces are normal. XR/XR finger LT min 2V IMPRESSION: No significant interval change. Comminuted tuft fracture of the distal tuft of the distal phalanx of the third digit. Electronically signed by: Romario Sands MD 07/02/2025 03:44 PM EDT Procedures Abscess I/D Site: upper extremity Side (if applicable): left (third finger) Local Anesthetic: lidocaine 1% Amount of anesthesia used (mL): 5 (Digital Block) Technique: other (Cuticle Interruption with Scissors) Packing used?: none Complications: other (Minimal/Scant Bloody Material Expressed) Discharge Plan Discharge Clinical Impression: Cellulitis of finger of left hand Fracture of finger of left hand Qualifiers: Encounter type: subsequent encounter Finger: middle finger Fracture type: c losed Phalanx: distal Fracture alignment: nondisplaced Fracture healing: with routine healing Qualified Code(s): S62.663D - Nondisplaced fracture of distal phalanx of left middle finger, subsequent encounter for fracture with routine healing Patient Disposition: Home, Self-Care Instructions: Finger Fracture (ED), Cellulitis (ED), Paronychia (ED) Additional Instructions: Thank you for choosing [facility]'s Emergency Department for your care today. Your x-ray today redemonstrated your known fracture, there was no evidence of infection of your bone, a condition known as osteomyelitis. Your laboratory evaluation shows no evidence of a systemic infection, and at this time there is no indication for admission to the hospital or continued ED observation, and it is safe to discharge you home. Your finger does appear to have a slight increase in swelling concerning for reoccurring infection, we are treating you with Bactrim, please take this twice a day for the next 7 days. We also attempted to open the cuticle and express any purulent material which should also aid treating the infection and relieving pressure/pain in your finger. You should take alternating (staggered) doses of ibuprofen 600mg and Tylenol 1000mg every 4 hours as needed for any additional pain. Please rest the injured area, and apply ice for 20 minutes every hour. You can also apply warm moist heat if you find this gives you better relief. Please follow up with work connection and your primary care physician for re- evaluation, additional management of your symptoms, and continued preventative care. If you do not experience any improvement in your symptoms in the next 3 days while taking Bactrim, or if you notice worsening swelling of the pad of the end of your finger (Felon), or similar swelling beginning on the other 2 portions of the palm side of your finger, with inability to flex the finger (flexor tenosynovitis), please return immediately to the emergency department as this may indicate failure of outpatient antibiotics and you would then require a surgical washout in the operating room. If you do not have a primary care physician, please call the [facility] at [phone] to establish a new primary care physician. While waiting to establish your new primary care physician, you can call our Walk-in [facility] at [phone] for non-emergency needs. Please return to the emergency department if you develop a severe or sudden change in your symptoms, a fever over 100.4 that does not improve with Tylenol or Ibuprofen, recurrent vomiting, or any other new or worsening symptoms or concerns. Prescriptions: New sulfamethoxazole-trimethoprim [Bactrim DS] 800-160 mg tablet 1 tab PO BID Qty: 14 0RF No Action (DME) blood-glucose meter [FreeStyle Lite Meter] Kit See Rx Instructions .Route Qty: 1 0RF Rx Instructions: As directed (DME) lancets [FreeStyle Lancets] 28 gauge misc See Rx Instructions .Route Qty: 100 2RF Rx Instructions: Test blood sugar twice a day (DME) FreeStyle Lite Strips Strip See Rx Instructions .Route Qty: 200 3RF Rx Instructions: Use 1 test strip BID to check sugar simvastatin 40 mg tablet 40 mg PO DAILY Qty: 90 1RF glipizide-metformin 2.5-500 mg tablet 1 tab PO DAILY Qty: 90 1RF cephalexin 500 mg capsule 500 mg PO Q8H Qty: 21 0RF Referrals: Rose Kinney MD [Primary Care Provider, Internal Medicine] Clinical Impression: Fracture of finger of left hand; Cellulitis of finger of left hand Andrea Portillo DO [Physician, Occupational Medicine] Clinical Impression: Fracture of finger of left hand; Cellulitis of finger of left hand Print Language: Telugu
[2025-07-02 16:04] LABS: MANUAL DIFF FLAG NO
[2025-07-02 16:07] LABS: Hematocrit 39.5 % (42.0-52.0); Hemoglobin 13.2 g/dl (14.0-18.0); Imm Gran Abs Auto 0.04 X10*3/uL (0.00-0.03); Imm Gran Pct Auto 0.4 % (0.0-0.4); Lymphocytes Absolute Auto 4.2 X10*3/uL (1.2-4.9); Mean Corpuscular HGB Conc 33.4 g/dl (31.0-36.0); Mean Corpuscular Hemoglobin 30.2 pg (27.0-33.0); Mean Corpuscular Volume 90.4 fL (80.0-98.0); NRBC Abs Auto 0.000 X10*3/uL (0.0-0.012); NRBC Pct Auto 0.0 /100WBC (0.0-0.2); Platelet Count 243 X10*3/uL (160-400); Red Blood Count 4.37 X10*6/uL (4.60-5.80); White Blood Count 9.6 X10*3/uL (4.8-10.8)
[2025-07-02 16:21] LABS: Alanine Aminotransferase 19 U/L (0-40); Albumin Level 4.8 g/dL (3.5-5.0); Alkaline Phosphatase 73 U/L (39-117); Anion Gap 9 (12-20); Aspartate Amino Transferase 23 U/L (5-37); Blood Urea Nitrogen 11 mg/dL (9-16); Calcium 9.6 mg/dL (8.4-10.2); Carbon Dioxide 27 mmol/L (22-29); Chloride 109 mmol/L (96-108); Creatinine Clr Calc Pharmacy 119.4; Estimated Glomerular Filt Rate > 60; Potassium 4.1 mmol/L (3.3-5.1); Sodium 141 mmol/L (135-145); Total Protein 7.6 g/dL (6.5-8.0)
[2025-07-02 19:55] VITALS: BP 119/76; PULSE 56; RESP 18; O2SAT 99
[2025-07-02] MEDS: Lidocaine HCl 1 % MPF 5 ML VIAL INFILTRATI (20:54)
[2025-07-02] MEDS: Sulfamethox/Trimeth 800/160 TABLET 1 TAB PO (21:02)
[2025-07-02 21:44] VITALS: BP 119/76; PULSE 56; RESP 18; TEMP 37.1; O2SAT 99
== END 2025-07-02 21:45 | disposition home or self-care (01) ==
PROVIDERS: Physician Assistant Medical; Emergency Provider Emergency Medicine; PCP Internal Medicine
DX: L03.012 Cellulitis of left finger (principal); M79.645 Pain in left finger(s)
CPT/HCPCS: 10060; 36415; 73140; 80053; 85025; 99283; 99284; J2003

== ENCOUNTER → 2025-07-02 15:27 | Outpatient (BNV) | payer OTHER, SELFPAY | PROVIDERS: PCP Internal Medicine; Visit Provider Radiology Diagnostic Radiology | DX: S62.625A Displaced fracture of middle phalanx of left ring finger, initial encounter for closed fracture (principal) | CPT/HCPCS: 73140 ==

== ENCOUNTER → 2025-08-16 07:39 | Outpatient (BNVA) | payer OTHER, SELFPAY | PROVIDERS: PCP Internal Medicine; Visit Provider Emergency Medicine | DX: S62.633D Displaced fracture of distal phalanx of left middle finger, subsequent encounter for fracture with routine healing (principal); W20.8XXD Other cause of strike by thrown, projected or falling object, subsequent encounter; Z02.79 Encounter for issue of other medical certificate | CPT/HCPCS: 73140; 99214 ==

== ENCOUNTER 2025-08-29 13:14 | Outpatient (REF) | payer OTHER, SELFPAY ==
[2025-08-29 16:11] LABS: Alanine Aminotransferase 23 U/L (0-40); Albumin Level 4.9 g/dL (3.5-5.0); Alkaline Phosphatase 74 U/L (39-117); Anion Gap 12 (12-20); Aspartate Amino Transferase 27 U/L (5-37); Blood Urea Nitrogen 12 mg/dL (9-16); Calcium 9.4 mg/dL (8.4-10.2); Carbon Dioxide 25 mmol/L (22-29); Chloride 105 mmol/L (96-108); Cholesterol 179 mg/dL (<200); Estimated Glomerular Filt Rate > 60; HDL Cholesterol 36 mg/dL (>40); Potassium 4.2 mmol/L (3.3-5.1); Sodium 138 mmol/L (135-145); Total Protein 7.6 g/dL (6.5-8.0); Triglycerides 91 mg/dL (<150)
== END 2025-08-29 13:15 | disposition home or self-care (01) ==
LOC: HO.HMGCLDS 13:14
PROVIDERS: PCP Internal Medicine; Visit Provider Internal Medicine
DX: E13.9 Other specified diabetes mellitus without complications (principal); E78.9 Disorder of lipoprotein metabolism, unspecified
CPT/HCPCS: 36415; 80053; 80061; 83036

== ENCOUNTER 2025-08-30 14:39 | Outpatient (AMB) | payer OTHER, SELFPAY ==
--- NOTE | 2025-08-30 14:42 | A.OFFPC_ITS ---
Vital Signs 08/30/25 14:43 Height 5 ft 11 in Weight 237 lb BMI 33.1 BP 120/74 Blood Pressure Location Lt brachial Position Sitting Pulse 76 Pulse Source Pulse Oximeter Pulse Oximetry (%) 98 Intake Visit Reasons: 4 months f/up Allergies acetaminophen (From Tylenol-Codeine) Adverse Reaction (Mild, Verified 08/30/25 14:43) hives codeine (From Tylenol-Codeine) Adverse Reaction (Mild, Verified 08/30/25 14:43) hives Medication List - Last Reconciled 08/30/25 by Rose Kinney MD blood sugar diagnostic (FreeStyle Lite Strips) Use 1 test strip BID to check sugar blood-glucose meter (FreeStyle Lite Meter kit) As directed glipizide-metformin 2.5-500 mg 1 tab PO DAILY lancets (FreeStyle Lancets) Test blood sugar twice a day simvastatin 40 mg PO DAILY Tobacco use date assessed: 12/11/24 Dental Screening Dental Screen Date: 12/11/24 HPI HPI Comments History of Present Illness Details History of Present Illness The patient is a 45 year old individual presenting with a follow-up for chronic condition management and completion of a DOT medical form. Type 2 diabetes mellitus: - The patient's A1c has improved to 6.1% as of August 29, down from 6.5% in April. - Current medication is glipizide-metfor min 2.5-500 mg, one tablet daily, which was started in April. - The patient monitors blood sugar once a day. - An eye exam in June was normal, w ith no signs of diabetic retinopathy. Hyperlipidemia: - The patient's LDL cholesterol has impr darrel from 167 mg/dL in April to 125 mg/dL. - The patient is taking simvastatin 40 m g daily and reports no problems with the medication. 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 Diagnostic Results: - Lab results from August 29: - A1c: 6.1% (decreased from 6.5% in April ). - LDL cholesterol: 125 mg/dL (decreased from 167 mg/dL in April). - Electrolytes: Good. - Kidney function: Good. - Liver enzymes: Fine. - Eye Exam (June): No evidence of d iabetic retinopathy. 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 Cognitive needs: No Hearing needs: No Vision needs: No Questionnaire Thrive Questionnaire Date Thrive assessed: 12/11/24 I am a: Patient What is your living situation today?: I have a steady place to live Within the past 12 months, did the food you bought not last and you didn't have the money to get more?: Never true Within the past 12 months, did you worry whether your food would run out before you got money to buy more?: Never true Do you have trouble paying for medicines?: No Do you have trouble getting transportation to medical appointments?: No Do you have trouble paying your heating and electricity bill?: No Do you have trouble taking care of your child, family member or friend?: No Do you have trouble with day-to-day activities such as bathing, preparing meals, shopping, managing finances, etc.?: No Are you currently unemployed and looking for a job?: No Are you interested in more education?: No Please select the resources that you would like help with: None Currently or been in a relationship where the following occur: No concerns reported THRIVE Score: 0 GERALD-7 AMB Questionnaire GERALD-7 Date GERALD - 7 assessed: 12/11/24 Source: Developed by Drs. Johnny Raymundo, Sharifa Ballesteros, Vijay Abarca and colleagues, with an educational vipin from [employer]. Review of Systems Narrative Review of Systems - General: No fever no chills - Neurological: No headaches no dizziness - Ear nose throat: No sore throat no hearing difficulty no ear pain - Cardiovascular: No syncope, no chest pain, no palpitations - Gastrointestinal: No nausea vomiting or diarrhea - Endocrine: No polyuria polydipsia no heat intolerance - Genitourinary: No dysuria , no blood in urine Physical exam (Primary Care) Vital Signs: Last Vital Signs Pulse 76 08/30/25 14:43 BP 120/74 08/30/25 14:43 Pulse Ox 98 08/30/25 14:43 BMI result Body Mass Index 33.1 Tobacco/Smoking Status: Tobacco use Status Tobacco use date assessed 12/11/24 08/30/25 14:43 Patient Tobacco Use Status Current everyday Tobacco 08/30/25 14:43 Tobacco use type Cigarette 08/30/25 14:43 e-Cigarette/Vaping Use Never Used 08/30/25 14:43 Thrive Assessment: Date of Thrive Assessment Date Thrive assessed 12/11/24 08/30/25 14:43 Currently or been in a relationship where the following occur: No concerns reported Narrative Physical Exam General: No acute distress HEENT: No acute findings Neck: Supple Respiratory system: Able to talk in full sentences, no audible wheeze Cardiovascular: S1-S2 regular in rate and rhythm Gastrointestinal: No pain Extremities: No new findings, but patient reports a work injury on the finger, which is a little deformed 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 intact Skin: Normal turgor Coding Level of Care Code Est Pt Level 4 (98258) Diagnoses Diabetes 1.5, managed as type 2 E13.9 Lipid disorder E78.9 Time Spent (min) 30 Comment face to face / paper work/ coordination of care Assessment & Plan Assessment & Plan (1) Diabetes 1.5, managed as type 2: Code(s): E13.9 - Other specified diabetes mellitus without complications Category: Medical (2) Lipid disorder: Code(s): E78.9 - Disorder of lipoprotein metabolism, unspecified Category: Medical Plan Problem List - Type 2 diabetes mellitus - Hyperlipidemia - History of work-related finger injury - Preventative care: Annual 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 - The patient was advised to keep a copy of the DOT form for future annual renewals. - A follow-up appointment is scheduled in six months (April). - The patient will complete blood tests prior to the next visit. Medications: Refilled glipizide-metformin 2.5-500 mg 1 tab PO DAILY 90 tabs 1RF simvastatin 40 mg PO DAILY 90 tabs 1RF
[2025-08-30 14:43] VITALS: BP 120/74; PULSE 76; O2SAT 98; BMI 33.1
== END 2025-08-30 15:28 | disposition home or self-care (01) ==
LOC: HO.HMCC 14:40
PROVIDERS: PCP Internal Medicine; Visit Provider Internal Medicine
DX: E13.9 Other specified diabetes mellitus without complications (principal); E78.9 Disorder of lipoprotein metabolism, unspecified

== ENCOUNTER → 2025-08-30 14:39 | Outpatient (BNVA) | payer OTHER, SELFPAY | PROVIDERS: PCP Internal Medicine; Visit Provider Internal Medicine | DX: E13.9 Other specified diabetes mellitus without complications (principal); E78.5 Hyperlipidemia, unspecified; Z79.84 Long term (current) use of oral hypoglycemic drugs | CPT/HCPCS: 99212 ==

== ENCOUNTER 2025-09-08 05:55 | Emergency (ER) | payer OTHER, SELFPAY ==
[2025-09-08 06:07] VITALS: BP 127/84; PULSE 84; RESP 16; TEMP 36; O2SAT 96; BMI 33.8
--- NOTE | 2025-09-08 08:00 | PC.NURSE ---
Pt reports noticing painful rectal mass early this AM. No previous history of similar invent. Pt reports mass causing pain with sitting and throbs at baseline. Inspection of rectum shows a large (approx. grape sized) protrusion next to rectum. No bleeding present and color is consistent with surrounding tissue. Will request pain medication for Pt while provider eval pending. Pt offered ice pack but declined.
--- NOTE | 2025-09-08 08:50 | PC.NURSE ---
Pt given IM Toradol 60mg for reports rectal pain 10/10 Pain re-assessed at this time and Pt reports no relief. Pt awaiting ED provider eval.
--- NOTE | 2025-09-08 08:59 | ED_ITS ---
HPI - General Adult General Chief complaint: General Medical Stated complaint: General Medical Time Seen by Provider: 09/08/25 08:58 Source: patient, RN notes reviewed and old records reviewed Mode of arrival: ambulatory Limitations: no limitations History of Present Illness ED Provider: David YE narrative: Patient is a 45-year-old male with past medical history of T2 dm presenting to the emergency department with complaint of sudden onset rectal pain which began around 3:00 a.m. this morning. States that he was sitting on the toilet for approximately 1 hour looking at his phone, states he was not attempting to have a bowel movement when he developed sudden onset pain. He reports a firm mass to his rectal area now. Denies any discharge or drainage. Denies recent constipation. MD complaint: rectal pain Related Data Previous Rx's ?Medication ?Instructions ?Recorded blood-glucose meter (FreeStyle #1 ea 06/13/24 Lite Meter kit) blood sugar diagnostic (FreeStyle #200 ea 12/11/24 Lite Strips) lancets 28 gauge (FreeStyle #100 ea 01/30/25 Lancets) glipizide 2.5 mg-metformin 500 mg 1 tab PO DAILY #90 t abs 08/30/25 tablet simvastatin 40 mg tablet 40 mg PO DAILY #90 tabs 08/11 11/03 Allergies Allergy/AdvReac Type Severity Reaction Status Date / Time acetaminophen (From AdvReac Mild hives Verified 09/08/25 06:09 Tylenol-Codeine) codeine (From AdvReac Mild hives Verified 09/08/25 06:09 Tylenol-Codeine) PMFSH Past Medical History Medical History Diabetes 1.5, managed as type 2 Surgical History No pertinent past surgical history Social History Social History Housing: House Patient Tobacco Use Status: Current everyday Tobacco user Tobacco use type: Cigarette Cigarette Packs Per Day: 0.5 Cigarettes Per Day: 5 Years Smoked: 10 e-Cigarette/Vaping Use: Never Used Advance Directives: No Advance Directives Information Provided: Yes Do you have a plan to hurt others: No Plan Current occupational status: unemployed 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 Cognitive needs: No Hearing needs: No Vision needs: No Physical Exam ED Vital Signs: Vital Signs - 24 hr 09/08/25 06:07 Temperature 96.8 F Pulse Rate 84 Respiratory Rate 16 Blood Pressure 127/84 Pulse Oximetry 96 Oxygen Delivery Method Room Air BMI result Body Mass Index 33.8 Medications Administered Discontinued Medications Generic Name Dose Route Start Last Admin Trade Name Joseq PRN Reason Stop Dose Admin Ketorolac Tromethamine 60 mg 09/08/25 08:06 09/08/25 08:10 Ketorolac Tromethamine 60 Mg/2 Ml Vial IM 09/08/25 08:07 60 mg ONCE ONE Administration Oxycodone HCl 5 mg 09/08/25 09:05 09/08/25 09:10 Oxycodone Hcl Immed Release 5 Mg Tablet PO 09/08/25 09:06 5 mg ONCE ONE Administration Procedures Procedure Narrative Procedure Narrative: Incision of thrombosed external hemorrhoid performed with Dr. Harmon at bedside. Time out performed prior to procedure, area cleansed with betadine, 5mL of 1% lidocaine with epinephrine injected, 1cm incision made with #11 blade. 2 clots removed, patient tolerated well and reported immediate relief. Medical Decision Making Medical Decision Making [facility] Narrative: Patient is a 45-year-old male with past medical history of T2 dm presenting to the emergency department with complaint of sudden onset rectal pain which began around 3:00 a.m. this morning. On exam patient is awake, A+Ox3, VS WNL, afebrile, normal neurological exam without focal deficits, physical exam findings as above. Given reported symptoms and physical exam findings, initial differential includes but is not limited to external hemorrhoid, thrombosed hemorrhoid, rectal prolapse. Physical exam findings consistent with thrombosed hemorrhoid. Case discussed with attending, Dr. Harmon, who recommends incision and removal of clot. Incision and removal of clot performed as per procedure note with patient reporting immediate relief. Aftercare instructions discussed at bedside including Preparation H suppositories and topical cream, Sitz baths, and follow up with general surgery. Return precautions discussed. Patient verbalized understanding of and agreement with plan. Differential Diagnosis Differential Diagnoses: The differential diagnosis associated with the presentation includes as per [facility] Admission/Observation Consideration of admission/observation: Escalation of care including admission/observation considered Patient would have been admitted to the hospital and transferred to appropriate facility had their clinical presentation warranted hospital admission. External Record Review External record reviewed: Inpatient record, Office record and Outpatient record Discharge Plan Discharge Clinical Impression: External hemorrhoid, thrombosed Patient Disposition: Home, Self-Care Instructions: Hemorrhoids (DC), Sitz Bath (DC) Additional Instructions: You were evaluated in the emergency department today for rectal pain which was due to a thrombosed hemorrhoid. We made a small incision and removed the clot in the ED. We recommend that you use over the counter Preparation H suppositories twice daily as well as Preparation H topical cream. You can also perform Sitz baths as discussed. Avoid sitting on the toilet for extended periods of time. Follow up with general surgery. Return to the emergency department if you develop increased bleeding, thick yellow discharge from the area, fever 100.4 F or greater or any other new or concerning symptoms. Prescriptions: No Action (DME) blood-glucose meter [FreeStyle Lite Meter] Kit See Rx Instructions .Route Qty: 1 0RF Rx Instructions: As directed (DME) lancets [FreeStyle Lancets] 28 gauge misc See Rx Instructions .Route Qty: 100 2RF Rx Instructions: Test blood sugar twice a day (DME) FreeStyle Lite Strips Strip See Rx Instructions .Route Qty: 200 3RF Rx Instructions: Use 1 test strip BID to check sugar glipizide-metformin 2.5-500 mg tablet 1 tab PO DAILY Qty: 90 1RF simvastatin 40 mg tablet 40 mg PO DAILY Qty: 90 1RF Referrals: [facility] [place] [facility] [Provider Group, General Surgery] - 1 week Referral Note: for follow up, clot removed in the ED Clinical Impression: External hemorrhoid, thrombosed Print Language: Kiswahili
[2025-09-08] MEDS: oxyCODONE HCl Immed Release 5 MG TABLET PO (09:10)
[2025-09-08] MEDS: Lidocaine HCl 1%/Epi 1:100,000 20 ML VIAL 10 ML INFILTRATI (09:52)
[2025-09-08 10:07] VITALS: BP 127/84; PULSE 84; RESP 16; TEMP 36; O2SAT 96
== END 2025-09-08 10:08 | disposition home or self-care (01) ==
PROVIDERS: Emergency Provider Emergency Medicine Emergency Medical Services; PCP Internal Medicine
DX: K64.5 Perianal venous thrombosis (principal); E11.9 Type 2 diabetes mellitus without complications
CPT/HCPCS: 46083; 96372; 99284; J1885; J2004

== ENCOUNTER 2025-09-10 09:57 | Outpatient (REF) | payer OTHER, SELFPAY ==
--- NOTE | ~2025-09-10 | XR_ITS ---
EXAMINATION: XR HAND 3 OR MORE VIEWS LEFT HISTORY: M79.642 - Pain in left hand COMPARISON: Comparison is made with the prior examination of the left middle finger dated 08/16/2025. FINDINGS: Three views of the left hand are submitted. Osseous mineralization is normal. Again seen is a comminuted fracture of the tuft of the middle finger. The fracture lines remain visible. The joint spaces are preserved. There is soft tissue swelling at the fracture site. XR/XR hand LT min 3V IMPRESSION: Comminuted fracture of the tuft of the middle finger change. Electronically signed by: Johnny Santoyo MD 09/10/2025 03:02 PM TRAE
== END 2025-09-10 09:58 | disposition home or self-care (01) ==
LOC: HO.HOSX 09:57
PROVIDERS: Visit Provider Orthopaedic Surgery
DX: S62.633D Displaced fracture of distal phalanx of left middle finger, subsequent encounter for fracture with routine healing (principal); F12.10 Cannabis abuse, uncomplicated; E11.9 Type 2 diabetes mellitus without complications; X58.XXXD Exposure to other specified factors, subsequent encounter
CPT/HCPCS: 73130; 99212

== ENCOUNTER 2025-09-10 14:50 | Outpatient (AMB) | payer OTHER, SELFPAY ==
--- NOTE | 2025-09-10 15:07 | A.OFFVIS_ITS ---
Vital Signs 09/10/25 15:13 Height 51 ft 1 in Weight 242 lb BMI 0.5 Intake Visit Reasons: Newprob-Left middle finger injury-DOI 06/20/25 Intake Note: Jackson 45 yr old male who is right hand dominant and works at [employer] presents today for his W/C injury for his left hand middle finger DOI 06/20/25. States while at work, a 45 lb bag fell in his finger. Patient was seen at work connection where xrays were taken, fracture was confirmed, and his finger was splinted. Today patient states his finger is swollen, feels like he has pressure on tip of finger and limited ROM. States it is very sensitive on tip of his finger, it is very painful if he bangs it on a hard surface. Denies numbness or tingling. Allergies acetaminophen (From Tylenol-Codeine) Adverse Reaction (Mild, Verified 09/10/25 15:12) hives codeine (From Tylenol-Codeine) Adverse Reaction (Mild, Verified 09/10/25 15:12) hives HPI HPI Newprob-Left middle finger injury-DOI 06/20/25: Details: Jackson is a 45 year old right hand dominant Diabetic man who presents for a left middle finger distal phalanx fracture, S/P crush injury at work, DOI: 06/20/25. He was seen in the ED on 07/02/25 for a possible finger infection, and an I&D was performed, and he was discharged with Abx. He says his pain is improved, now he mostly appreciates pressure to the tip of his middle finger. He denies any numbness or tingling. REPLACED BY [facility] Medical History Diabetes 1.5, managed as type 2 Surgical History No pertinent past surgical history Social History (Updated 09/10/25 @ 15:13 by SADIQ Greco) Housing: House Patient Tobacco Use Status: Current everyday Tobacco user Tobacco use type: Cigarette Cigarette Packs Per Day: 0.5 Cigarettes Per Day: 5 Years Smoked: 10 e-Cigarette/Vaping Use: Never Used Current occupational status: employed Current occupation: [employer] Cognitive needs: No Hearing needs: No Vision needs: No Review of Systems Const All systems reviewed & are unremarkable except as noted in HPI and below Physical Exam Vital Signs: BMI result Body Mass Index 0.5 Const General: cooperative, healthy appearing and no acute distress Orientation/consciousness: patient oriented x3 HEENT Head: Yes normocephalic and Yes atraumatic Eyes EOM: EOMs intact bilaterally Resp Effort & Inspection: normal respiratory effort and able to speak in complete sentences Cardio Jugular venous distension: no JVD Skin General skin exam: turgor normal Rashes: no rashes Neuro General: patient oriented x3 Extrem Other: Evaluation of Left Upper Extremity: The patient is alert, oriented, and in no acute distress Neuro: Median, Ulnar, Radial nerves motor and sensory intact and sensation is normal to the tips of all digits Vascular: Cap refill brisk ROM: He can make a fist and extend all his digits Middle finger Distal phalanx mildly enlarged & swollen Slight ulnar deviation roughly at the D IP joint Somewhat tender at the tip of the middle finger No tenderness squeezing the sides of the distal phalanx, or squeezing between volar and dorsal over the nail plate. Skin: No lacerations or abrasions. General: No Ecchymosis. No Erythema or evidence of infection. Radiographs: 3 views of the left hand were taken and viewed by me today in clinic. They show a comminuted middle finger distal phalanx distal tuft fracture with satisfactory fracture alignment and some evidence of interval bony healing. Psych Appearance: grossly normal Affect: normal affect Attitude: cooperative Assessment & Plan Assessment & Plan (1) Closed fracture of tuft of distal phalanx of left middle finger: Code(s): S62.633A - Displaced fracture of distal phalanx of left middle finger, initial encounter for closed fracture Category: Medical (2) Cannabis use disorder, mild, abuse: Code(s): F12.10 - Cannabis abuse, uncomplicated Category: Medical (3) Uncontrolled diabetes mellitus: Category: Medical Plan Assessment & Plan: 1. Left middle finger distal phalanx distal tuft fracture, comminuted From a crush injury, DOI: 06/20/25 This is a workplace injury I educated him about this condition This has been managed by work connections I recommend activity modification, avoiding tight gripping through his fingertips for the time being, likely an opening a jar. His range of motion is good, and he can continue to work on ROM exercises at home I taught him exercises and to massage about the tip of his finger to decrease chances of hypersensitivity We talked about OT hand therapy and he declined for now. He would like to do exercises at home and give it more time. I explained that fractures can take up to 12 weeks for full healing I explained the effects of smoking on wound/bone healing, and recommend they stop smoking prior to surgery & while healing. This includes vaping, Marijuana, and other Nicotine products including patches used to help quit. They expressed understanding. He will follow up prn Scribed for Fely Elliott MD by Rafael Grewal, biomedical engineering internship, on 09/10/25 at 3:10 PM, EST. Orders: Orders XR hand LT min 3V Today M79.642 - Pain in left hand Coding Level of Care Code New Pt Level 3 (84582) Diagnoses Closed fracture of tuft of distal phalanx of left middle finger S62.633A Cannabis use disorder, mild, abuse F12.10 Uncontrolled diabetes mellitus
== END 2025-09-10 15:27 | disposition home or self-care (01) ==
LOC: HO.HOS 14:51
PROVIDERS: PCP Internal Medicine; Visit Provider Orthopaedic Surgery
DX: S62.633A Displaced fracture of distal phalanx of left middle finger, initial encounter for closed fracture (principal); F12.10 Cannabis abuse, uncomplicated
CPT/HCPCS: 99213

== ENCOUNTER → 2025-09-10 14:52 | Outpatient (BNV) | payer OTHER, SELFPAY | PROVIDERS: Visit Provider Radiology Diagnostic Radiology | DX: S62.603A Fracture of unspecified phalanx of left middle finger, initial encounter for closed fracture (principal) | CPT/HCPCS: 73130 ==

== ENCOUNTER 2025-09-12 13:42 | Outpatient (AMB) | payer OTHER, SELFPAY ==
--- NOTE | 2025-09-12 13:47 | A.OFFVIS_ITS ---
Vital Signs 09/12/25 13:56 Height 5 ft 11 in Weight 230 lb BMI 32.1 Intake Visit Reasons: painful thrombosed hemorrhoid Intake Note: Patient presents for an assessment for painful thrombosed hemorrhoid. Pt c/o; no rectal bleeding, never had a colonoscopy before. Community Relations Rep Required: No Accompanied by: Family/Other Allergies acetaminophen (From Tylenol-Codeine) Adverse Reaction (Mild, Verified 09/12/25 13:57) hives codeine (From Tylenol-Codeine) Adverse Reaction (Mild, Verified 09/12/25 13:57) hives Medication List - Last Reconciled 09/12/25 by Yung Matos MD blood sugar diagnostic (FreeStyle Lite Strips) Use 1 test strip BID to check sugar blood-glucose meter (FreeStyle Lite Meter kit) As directed glipizide-metformin 2.5-500 mg 1 tab PO DAILY lancets (FreeStyle Lancets) Test blood sugar twice a day simvastatin 40 mg PO DAILY HPI HPI painful thrombosed hemorrhoid: Details: 45-year-old male referred for thrombosed hemorrhoid. Review of his records show that he went to the ER last 09/08/2025 because of anal pain. He was diagnosed to have a thrombosed external hemorrhoid. An incision drainage was done under local anesthesia to remove the clots. He says that the thrombosed hemorrhoid was large and very swollen. He says that he feels much better now although he does have some discomfort still. He denies any bleeding He says that he had been sitting on the toilet for an hour on his cell phone a day before his thrombosed hemorrhoid and this may have been a factor. He said he had he really does not have any problem with constipation. [facility] Medical History Diabetes 1.5, managed as type 2 Surgical History No pertinent past surgical history Social History Housing: House Patient Tobacco Use Status: Current everyday Tobacco user Tobacco use type: Cigarette Cigarette Packs Per Day: 0.5 Cigarettes Per Day: 5 Years Smoked: 10 e-Cigarette/Vaping Use: Never Used Current occupational status: employed Current occupation: [employer] Cognitive needs: No Hearing needs: No Vision needs: No Review of Systems Const Denies chills and Denies fever(s) Card Denies chest pain, Denies dyspnea and Denies dyspnea on exertion Resp Denies cough, Denies dyspnea and Denies dyspnea on exertion GI Denies hematochezia and Denies change in bowel habits Denies hematuria and Denies difficulty urinating Musc Denies back pain and Denies limited range of motion Neuro Denies focal weakness and Denies convulsions Psych Denies depression and Denies mood swings Physical Exam Const General: comfortable and no acute distress Orientation/consciousness: patient oriented x3 Neck Neck: Yes no lymphadenopathy Resp Auscultation: clear to auscultation bilaterally Cardio Rhythm: regular rhythm GI Other: Rectal exam shows a residual thrombosed external hemorrhoid on the right side, about 1.5 cm, nontender, non inflamed Palpation (GI): Soft to palpation, nontender and no guarding Neuro General: patient oriented x3 Assessment & Plan Assessment & Plan (1) External hemorrhoid, thrombosed: Code(s): K64.5 - Perianal venous thrombosis Category: Medical Plan: He had I&D for large thrombosed external hemorrhoid in the ER last 09/08/2025. He feels much better now. Examination today shows this still has this residual thrombus. However, he has has improved significantly with regards to symptoms I have instructed him to do warm compresses or hot Sitz baths to help with the resorption of the thrombus. I will see him again in the office in about 1 month to see how is doing. I explained to him that once in a while, they may benefit from formal hemorrhoidectomy if this is still bothersome I advised him on avoiding straining and constipation I also advised him to avoid sitting on the toilet for long periods of time during bowel movements. Coding Level of Care Code New Pt Level 3 (68053) Diagnoses External hemorrhoid, thrombosed K64.5
[2025-09-12 13:56] VITALS: BMI 32.1
== END 2025-09-12 14:04 | disposition home or self-care (01) ==
LOC: HO.HGS 13:44
PROVIDERS: Visit Provider Surgery
DX: K64.5 Perianal venous thrombosis (principal)
CPT/HCPCS: 99203

== ENCOUNTER → 2025-09-12 13:42 | Outpatient (BNVA) | payer OTHER, SELFPAY | PROVIDERS: Visit Provider Surgery | DX: K64.5 Perianal venous thrombosis (principal) | CPT/HCPCS: 99202 ==